=== PATIENT | female | born 1960 | race Caucasian/White ===

== ENCOUNTER 2016-10-18 09:18 | Day surgery (SDC) | payer OTHER ==
[2016-09-27 09:23] VITALS: BMI 57.0
--- NOTE | 2016-09-27 09:51 | PAT Medication Instructions ---
Service Date Sep 27, 2016. Current Home Medication List Citalopram Hydrobromide (Celexa), 20 MG PO QAM Fluticasone Propionate (Nasal) (Flonase Allergy Relief), 2 SPRAY WHITNEY DAILY PRN for prn Lisinopril/Hctz (Prinzide 20-25MG), 1 TAB PO QAM Lovastatin (Mevacor), 10 MG PO HS Meloxicam (Mobic), 15 MG PO QAM Omeprazole (Prilosec), 20 MG PO DAILY PRN for Indigestion Medication Instructions For Your Scheduled Surgery - Hold the following medications the morning of surgery: Lisinopril/Hctz (Prinzide 20-25MG), 1 TAB PO QAM Meloxicam (Mobic), 15 MG PO QAM (otherwise okay to continue per surgeon) - Take the following medications the morning of surgery with a sip of water OTHERWISE NOTHING TO EAT OR DRINK AFTER MIDNIGHT: Omeprazole (Prilosec), 20 MG PO DAILY PRN for Indigestion Citalopram Hydrobromide (Celexa), 20 MG PO QAM Fluticasone Propionate (Nasal) (Flonase Allergy Relief), 2 SPRAY WHITNEY DAILY PRN for prn - Take the following medications as scheduled the night before surgery: Lovastatin (Mevacor), 10 MG PO HS If you have any questions please call us at [phone] or [phone] or [phone]
[2016-09-27 11:07] LABS: BASO % 0.5 %; BASO ABS # 0.04 K/uL (0-0.2); COMPLETE YES; EOS % 5.7 %; HEMATOCRIT 43.9 % (37-47); IG% 0.3 %; LYMPH % 42.1 %; LYMPH ABS # 3.17 K/uL (1.2-3.4); MEAN CELL VOLUME 90.5 fL (80-100); MEAN CORPUSCULAR HEMOGLOBIN 28.9 pg (25-34); MEAN CORPUSCULAR HGB CONC 31.9 g/dl (32-36); MEAN PLATELET VOLUME 10.5 fL (7.4-10.4); MONO % 5.4 %; PLATELET COUNT 267 K/uL (130-400); RED BLOOD COUNT 4.85 M/uL (4.2-5.4); WHITE BLOOD COUNT 7.53 K/uL (4.8-10.8)
[2016-09-27 11:17] LABS: BUN/CREATININE RATIO 13.8 (10-20); CALCIUM 8.8 mg/dl (8.5-10.1); CREATININE 0.77 mg/dl (0.60-1.20); POTASSIUM 3.9 mmol/L (3.5-5.1)
--- NOTE | 2016-10-17 17:06 | History and Physical ---
History & Physical Date & Time of Service: Oct 17, 2016 at 17:02 Chief Complaint: Right Knee Medial/Lateral Meniscal Tear, Djd Primary Care Physician: Kimi Salinas D.O. History of Present Illness Source: patient Past Medical/Surgical History Medical Problems: (1) CALCULUS OF KIDNEY Status: Chronic (2) DIAB LUCIE WO COMPL, TYPE II OR UNSPEC TYPE, NOT UNCNTRLD Status: Chronic (3) FAM HX-OTH KIDNEY DISEASES Status: Chronic (4) FAMILY HISTORY OF OTHER CARDIOVASCULAR DISEASES Status: Chronic (5) HYPERTENSION NOS Status: Chronic (6) OBESITY, NOS Status: Chronic (7) SUICIDAL IDEATION Status: Chronic (8) TOBACCO USE DISORDER Status: Chronic Social History Smoking Status: Current Every Day Smoker Marital Status: Housing status: lives with family Occupational Status: unemployed Immunizations History of Influenza Vaccine: N/A History of Tetanus Vaccine?: Yes History of Pneumococcal: Yes History of Hepatitis B Vaccine: No Multi-Drug Resistant Organisms History of MDRO: No Allergies Coded Allergies: Sulfa Drugs (Verified Allergy, Mild, N/V, 09/27/16) Replaces SULFAMETHOXAZ Diclofenac (Verified Allergy, Unknown, NAUSEA, 09/27/16) Penicillins (Verified Allergy, Unknown, HIVES, 09/27/16) Sulindac (Verified Allergy, Unknown, NAUSEA, 09/27/16) Oxycodone (Verified Adverse Reaction, Mild, ANXIOUS, 09/27/16) Home Medications Scheduled Citalopram Hydrobromide (Celexa), 20 MG PO QAM Lisinopril/Hctz (Prinzide 20-25MG), 1 TAB PO QAM Lovastatin (Mevacor), 10 MG PO HS Meloxicam (Mobic), 15 MG PO QAM Scheduled PRN Fluticasone Propionate (Nasal) (Flonase Allergy Relief), 2 SPRAY WHITNEY DAILY PRN for prn Omeprazole (Prilosec), 20 MG PO DAILY PRN for Indigestion Physical Exam General Appearance: WD/WN, no apparent distress Head: normocephalic, atraumatic Eyes: normal inspection, PERRL Neck: supple, no adenopathy Respiratory/Chest: chest non-tender, lungs clear Cardiovascular: regular rate, rhythm Abdomen/GI: normal bowel sounds, non tender medial and lateral joint line tenderness, + mcmurrays, pain with end ROM, no signif effusion. No calf pain, neg homans. Impression Assessment and Plan Medial and lateral meniscal tears, OA. Plan for Right knee scope, PLM, PMM, Chondroplasty.
[~2016-10-18] VITALS: Ht 157.5 cm; Wt 142.4 kg
[~2016-10-18 09:18] MED LIST: CITA20TA9 PO; FLUT0.15 NAE; LACTATED RINGER'S 1000ML 1,000 ML IV SCH; LISI20TA55 PO; LOVA10TA3 PO; MELO7.5T5 PO; PRLSR20 PO; VANCOMYCIN INJ 2,000 MG in SODIUM CHLORIDE 0.9% 500ML 500 ML IV SCH
[2016-10-18] MEDS ORDERED: FENTANYL CITRATE INJ 50 MCG/1 ML 2 ML VIAL ONE ×2 (10:16→11:48)
[2016-10-18] MEDS ORDERED: MIDAZOLAM HCL 1 MG/ML 2ML VIAL ONE (10:16)
[2016-10-18 10:17] VITALS: BP 105/68; PULSE 76; TEMP 36.9; O2SAT 95; Ht 157.5 cm; Wt 142.4 kg
--- NOTE | 2016-10-18 11:02 | History & Physical Bridge Note ---
H&P Re-Evaluation Bridge Note: I have examined the patient, reviewed the History & Physical and in the interval since the performance of the History & Physical I have noted the following changes of clinical significance: No changes noted
[2016-10-18] MEDS ORDERED: ATROPINE SULFATE 0.1 MG/ML 5ML SYR IV PRN (11:15)
[2016-10-18] MEDS ORDERED: LABETALOL HCL IV 5 MG/ML 20ML IV PRN (11:15)
[2016-10-18] MEDS ORDERED: MEPERIDINE HCL 25 MG/ML CARP IV PRN (11:15)
[2016-10-18] MEDS ORDERED: ONDANSETRON INJ 2 MG/ML 2 ML VIAL IV PRN (11:15)
[2016-10-18] MEDS ORDERED: EpHEDrine SULFATE INJ 50 MG/ML AMP IV PRN (11:15)
[2016-10-18] MEDS ORDERED: BUPIVACAINE/EPINEPHRINE 0.5% MPF 1:200,000 10 ML VIAL ONE (11:22)
[2016-10-18] MEDS ORDERED: BUPIVACAINE 0.25% 30 ML VIAL ONE (11:33)
[2016-10-18] MEDS ORDERED: PHENYLEPHRINE 100MCG/ML 5ML SYR ONE (11:48)
[2016-10-18] MEDS ORDERED: ROCURONIUM BROMIDE 10 MG/ML 5 ML VIAL ONE (11:48)
[2016-10-18] MEDS ORDERED: PROPOFOL IV EMULSION 10 MG/ML 20 ML VIAL IV ONE (11:48)
[2016-10-18] MEDS ORDERED: EpHEDrine SULFATE INJ 50 MG/ML AMP ONE ×2 (11:48→11:52)
[2016-10-18] MEDS ORDERED: SODIUM CHLORIDE 0.9% INJ 10 ML VIAL ONE (11:52)
[2016-10-18] MEDS ORDERED: ONDANSETRON INJ 2 MG/ML 2 ML VIAL ONE (11:53)
[2016-10-18] MEDS ORDERED: DEXAMETHASONE SOD INJ 4 MG/ML VIAL ONE (11:53)
[2016-10-18] MEDS ORDERED: GLYCOPYRROLATE INJ 0.2 MG/ML VIAL ONE (11:53)
[2016-10-18] MEDS ORDERED: NEOSTIGMINE METHYLSULFATE 5 MG/5 ML SYR ONE (11:53)
[2016-10-18] MEDS ORDERED: SODIUM CHLORIDE 0.9% 1000ML 1,000 ML IV SCH (12:41)
[2016-10-18] MEDS ORDERED: HYDR-5688 PO (12:44)
[2016-10-18] MEDS ORDERED: HYDROCODONE/ACETAMOPHEN 5/325MG TAB PO PRN ×2 (12:45)
--- NOTE | 2016-10-18 12:47 | Discharge Instructions ---
Discharge Instructions Date of Service Oct 18, 2016. Admission Reason for Admission: Right Knee Medial/Lateral Meniscal Tear, Djd Discharge Discharge Diagnosis / Problem: Right knee scope, partial medial and lateral menisectomies. Discharge Goals Goal(s): Improve function Activity Recommendations Activity Limitations: as noted below . Instructions / Follow-Up Instructions / Follow-Up See printed home instruction sheet in chart. Begin PT 2-3 days post op at your place of choice, take printed PT Rx to first visit. Follow up w Dr. Lara's office 10-12 days post op as scheduled, call to confirm appt. Current Hospital Diet Patient's current hospital diet: Discharge Diet Recommended Diet: Regular Diet Procedures Procedures Performed: Right knee arthroscopy, medial and lateral menisectomy, chondroplasty Pending Studies Studies pending at discharge: no Medical Emergencies . Who to Call and When: Medical Emergencies: If at any time you feel your situation is an emergency, please call 911 immediately. . Non-Emergent Contact Non-Emergency issues call your: Primary Care Provider . "Provider Documentation" section prepared by Angel Swift. . VTE Core Measure Inpt VTE Proph given/why not?: SCD's [place] Drug Monitoring Program Search Results: patient reviewed within database, no issues identified
[2016-10-18] MEDS ORDERED: ALBUTEROL HFA INHALER 8.5 GM INH ONE (13:05)
[2016-10-18] MEDS ORDERED: ASPEC81 PO (13:22)
--- NOTE | 2016-10-18 13:22 | [facility] Operative Report ---
Operative Report Operative Date Oct 18, 2016. Pre-Operative Diagnosis Right knee medial and lateral meniscal tear, Degenerative joint disease Post-Operative Diagnosis same Procedure(s) Performed Right knee arthroscopy with partial medial meniscectomy partial lateral meniscectomy 3 compartment chondroplasty and increased difficulty due to morbid obesity BMI 57.4. Surgeon Dr Lara Electrician Sound Surgeon(s) none Estimated Blood Loss 0 ml Findings Tricompartmental DJD grade 3 with complex medial and lateral meniscus tears. Morbid obesity. Specimens none per surgeon Drains none Anesthesia Gen. Complication(s) None Disposition Recovery Room / PACU Indications Failed conservative management not [id number] on x-rays and MRI positive meniscus tears medial and lateral Description of Procedure The patient was taken to the operating room and anesthetized under a general anesthetic. The patient was placed supine on the operating room table. A pneumatic tourniquet was placed about the right upper thigh. The knee exam demonstrated a very obese thigh of these upper leg and obesity with knee stiffness with 0-115 range of motion with no instability and a moderately large effusion. The right leg was placed into an manager instrumentation leg holding device. The right lower extremity was prepped and draped in sterile fashion. Leg was elevated and exsanguinated with an Esmarch bandage and a pneumatic tourniquet was raised to 350 mmHg. The arthroscopy was performed via inferior medial and inferior lateral arthroscopy portals. A superior medial Additional portal was utilized. The following findings were noted patient had some lateral tracking of the patella she had grade 3 chondromalacia majority of patella lateral and medial facets and close to grade 4 changes in the central region. On the lateral femoral condyle and upper trochlear groove showed cystic and delamination with grade 3 wear and loose flaps around the periphery of the large lesion involving these upper trochlea over onto the lateral femoral condyle. In the medial compartment she had grade 3 wear mainly on the medial femoral condyle but some grade 2 wear on the tibial plateau and a complex medial meniscus tear. There was a horizontal cleavage undersurface flap that extended out to the periphery and into the posterior horn and some inner margin degenerative tearing of the posterior horn. There were notch osteophytes mainly on the tibial spines intact cruciate ligaments some grade 3 wear the anterior extension surface of the lateral femoral condyle and 1 area on the tibial spine that the bone was showing through with grade 3 chondromalacia lesion about 6 mm in diameter. Lateral meniscus had a horizontal cleavage tear mid undersurface meniscus.. Attention was first taken to the medial compartment. A partial medial meniscectomy was performed using a 4.5 mm resector blade and a 3.5 mm incisor curved blade suction shaver devices with basket punches to remove the unstable flaps and contour the meniscus to U-shaped resection. The undersurface flaps were debrided out to the periphery. The meniscus was probed and noted be stable. All grade 3 areas had a chondroplasty of the medial compartment smoothing down the frayed areas and removing all to laminating flaps. In the lateral compartment the undersurface of the lateral meniscus was resected out to the periphery utilizing a straight basket punch and the curved incisor blade. Did a chondroplasty to the femoral condyle and tibial plateau grade 3 lesions. The patellofemoral joint and did a chondroplasty of the trochlear groove and patella surfaces removing all loose to laminating flaps and smoothing out all grade 3 areas. All debris was irrigated out of the knee to lift knee was free of all debris.. The portal sites were closed with nylon sutures. The knee was injected with Marcaine 30 mL. Sterile dressings were applied including an James wrap from the foot to thigh. The patient normal capillary refill when the tourniquet was let down. The patient tolerated the procedure well. There was increased difficulty throughout the procedure due to her morbid obesity BMI 57.4. I attest to the content of the Intraoperative Record and any orders documented therein. Any exceptions are noted below.
[2016-10-18] MEDS: FENTANYL CITRATE INJ 50 MCG/1 ML 2 ML VIAL IV PRN ×4 (13:23→13:41)
[2016-10-18] MEDS: HYDROmorphone INJ 1 MG/ML SYR IV PRN ×7 (13:47→14:25)
[2016-10-18] MEDS ORDERED: NURSING VERBAL MED ORDER ONE ×2 (14:05→14:30)
[2016-10-18] MEDS ORDERED: KETOROLAC TROMETHAMINE 30 MG/ML VIAL ONE (14:20)
--- NOTE | 2016-10-18 14:44 | Anesthesiology Progress Note ---
Anesthesia Post Op Note Date & Time Oct 18, 2016 at 14:43 Vital Signs Pain Intensity: 5 Vital Signs Past 12 Hours Date Time Temp Pulse Resp B/P (MAP) Pulse Ox O2 Delivery O2 Flow Rate FiO2 10/18/16 14:38 37.0 10/18/16 14:30 77 12 92 10/18/16 14:30 84 12 10/18/16 14:27 158/53 10/18/16 14:25 108 13 93 10/18/16 14:25 103 13 10/18/16 14:22 146/77 10/18/16 14:20 90 13 93 10/18/16 14:20 94 13 10/18/16 14:16 115/91 10/18/16 14:15 106 19 93 10/18/16 14:15 105 19 10/18/16 14:11 136/59 10/18/16 14:10 82 12 92 10/18/16 14:10 86 12 10/18/16 14:06 124/58 10/18/16 14:05 102 19 10/18/16 14:05 101 19 92 10/18/16 14:02 141/60 10/18/16 14:00 98 12 92 10/18/16 14:00 96 12 10/18/16 13:57 156/64 10/18/16 13:55 97 16 10/18/16 13:55 101 16 92 10/18/16 13:54 89 21 10/18/16 13:54 87 21 93 10/18/16 13:51 115/77 10/18/16 13:49 100 12 93 10/18/16 13:49 94 12 10/18/16 13:48 99 18 10/18/16 13:48 97 18 93 10/18/16 13:46 157/67 10/18/16 13:43 96 21 10/18/16 13:43 96 21 92 10/18/16 13:41 127/67 10/18/16 13:38 92 17 10/18/16 13:38 90 17 94 10/18/16 13:37 109 22 10/18/16 13:37 109 22 94 10/18/16 13:36 163/72 10/18/16 13:32 104 12 10/18/16 13:32 102 12 99 10/18/16 13:31 153/73 10/18/16 13:27 103 18 10/18/16 13:27 104 18 92 10/18/16 13:26 165/70 10/18/16 13:23 111 20 10/18/16 13:23 111 20 96 10/18/16 13:21 155/89 10/18/16 13:18 107 19 93 10/18/16 13:18 107 19 10/18/16 13:16 141/78 10/18/16 13:13 101 19 10/18/16 13:13 101 19 93 10/18/16 13:11 145/79 10/18/16 13:09 168/78 10/18/16 13:08 111 10/18/16 13:08 111 94 10/18/16 13:08 37.0 105 18 168/78 93 Mask 10 10/18/16 10:17 36.9 76 20 105/68 (80) 95 Room Air Notes Mental Status: alert / awake / arousable, participated in evaluation Pt Amnestic to Procedure: Yes Nausea / Vomiting: adequately controlled Pain: adequately controlled Airway Patency, RR, SpO2: stable & adequate BP & HR: stable & adequate Hydration State: stable & adequate Anesthetic Complications: no major complications apparent
[2016-10-18 14:55] VITALS: BP 145/65; PULSE 100; TEMP 36.7; O2SAT 93
[2016-10-18 15:25] VITALS: BP 144/78; PULSE 100; TEMP 36.7; O2SAT 94
[2016-10-18 15:55] VITALS: BP 141/69; PULSE 88; TEMP 36.1; O2SAT 92
== END 2016-10-18 16:05 | disposition home or self-care (01) ==
LOC: C.ACU 09:18
PROVIDERS: ATTEND Orthopaedic Surgery Sports Medicine
DX: S83.281A Other tear of lateral meniscus, current injury, right knee, initial encounter (principal); S83.241A Other tear of medial meniscus, current injury, right knee, initial encounter; M17.11 Unilateral primary osteoarthritis, right knee; E66.01 Morbid (severe) obesity due to excess calories; Z68.43 Body mass index [BMI] 50.0-59.9, adult; E11.9 Type 2 diabetes mellitus without complications; I10 Essential (primary) hypertension; F17.210 Nicotine dependence, cigarettes, uncomplicated; Z79.899 Other long term (current) drug therapy; X58.XXXA Exposure to other specified factors, initial encounter

== ENCOUNTER 2018-09-30 20:37 | Observation (INO) ==
[2018-09-30 21:29] LABS: Basophils # (auto) 0.03 K/uL (0-0.2); Basophils % (auto) 0.3 %; Eosinophils # (auto) 0.55 K/uL (0-0.5); Eosinophils % (auto) 5.1 %; Hematocrit (blood only) 45.8 % (37-47); Hemoglobin 15.4 g/dL (12.0-16.0); Immature Granulocytes # (auto) 0.02 K/uL (0.00-0.02); Immature Granulocytes % (auto) 0.2 %; Lymphocytes # (auto) 3.89 K/uL (1.2-3.4); Lymphocytes % (auto) 35.8 %; Mean Corpuscular Hgb Conc 33.6 g/dL (32-36); Mean Corpuscular Volume 90.5 fL (80-100); Mean Platelet Volume 10.9 fL (7.4-10.4); Monocytes # (auto) 0.65 K/uL (0.11-0.59); Neutrophils # (auto) 5.72 K/uL (1.4-6.5); Neutrophils % (auto) 52.6 %; Platelet Count 283 K/uL (130-400); RDW Coefficient of Variation 14.3 % (11.5-14.5); RDW Standard Deviation 47.8 fL (36.4-46.3); Red Blood Count 5.06 M/uL (4.2-5.4); White Blood Count 10.86 K/uL (4.8-10.8)
[2018-09-30 21:40] LABS: Partial Thromboplastin Ratio 1.1; Partial Thromboplastin Time 28.5 Seconds (21.0-31.0); Prothrombin Time 10.3 Seconds (9.0-12.0)
[2018-09-30 21:45] LABS: Alanine Aminotransferase 25 U/L (12-78); Albumin Level 3.3 gm/dl (3.4-5.0); Aspartate Aminotransferase 15 U/L (15-37); BUN Creatinine Ratio 8.5 (10-20); Blood Urea Nitrogen 7 mg/dl (7-18); Calcium 9.3 mg/dl (8.5-10.1); Carbon Dioxide 29 mmol/L (21-32); Chloride 105 mmol/L (98-107); Creatinine Clr Calc Pharmacy 98.1 ml/min; Est GFR (African American) 92.1; Est GFR (Non-African American) 79.4; Glucose 113 mg/dl (70-99); Potassium 3.3 mmol/L (3.5-5.1); Sodium 140 mmol/L (136-145)
[2018-09-30 21:50] LABS: Albumin Globulin Ratio 0.8 (0.9-2); Alkaline Phosphatase 120 U/L (45-117); Bilirubin,Total 0.2 mg/dl (0.2-1); Globulin 4.3 gm/dl (2.5-4.0); Total Protein 7.6 gm/dl (6.4-8.2); Troponin I < 0.015 ng/ml (0-0.045)
[2018-09-30] MEDS ORDERED: NITROGLYCERIN 2% OINTMENT 30GM TUBE EXT ONE (21:58)
[2018-09-30] MEDS ORDERED: ASPIRIN 325 MG ECTAB PO STA (22:12)
--- NOTE | 2018-09-30 22:12 | Emergency Department Note ---
Entered by Anusha Blue acting as a scribe for Apolonia Persaud DO History of Present Illness General Chief complaint: Chest Pain Stated complaint: CHEST PAIN, L ARM PAIN Time Seen by Provider: 09/30/18 21:31 Source: patient Limitations: no limitations History of Present Illness Onset (ago): hour(s) 2 Location: chest Radiation: other (left upper extremity, left jaw) Pain Consistency: + intermittent Maximum Pain Intensity: 5 Quality: + other ("discomfort") Associated symptoms: + other (lower extremity swelling); no cough Treatments prior to arrival: none The patient is a 58 year female who presents to the ED complaining of intermittent chest pain that began at 1930 this evening. The rates the pain as a 5/10 in severity. She reports that the pain began in her left shoulder and chest, radiated to her left upper extremity and left jaw, and moved to her central chest. The patient describes the chest pain as chest "discomfort." She complains of lightheadedness and nausea. She denies any lower extremity swelling, cough, and recent medication change. 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 She notes that she smokes cigarettes daily. The patient denies any recent change in activity levels. Home Medications Home Medications Medication Instructions Recorded Confirmed Type Flonase Sensimist 2 spray INTRANASAL DAILY PRN 09/30/18 09/30/18 History citalopram [Celexa] 20 mg PO DAILY 09/30/18 09/30/18 History lisinopril-hydrochlorothiazide 1 tab PO DAILY 09/30/18 09/30/18 History [Zestoretic] ranitidine HCl 150 mg PO DAILY PRN 09/30/18 09/30/18 History aspirin [Ecotrin Low Strength] 81 mg PO QAM 30 Days #30 tab 10/01/18 Rx atorvastatin 10 mg PO QAM 30 Days #30 tab 10/01/18 Rx Allergies Allergy/AdvReac Type Severity Reaction Status Date / Time Sulfa (Sulfonamide Allergy Mild N/V Verified 09/30/18 22:27 Antibiotics) capsaicin Allergy Unknown NAUSEA Verified 09/30/18 22:27 diclofenac Allergy Unknown NAUSEA Verified 09/30/18 22:27 Diclopak Allergy Unknown NAUSEA Verified 10/18/16 10:27 Penicillins Allergy Unknown HIVES Verified 09/30/18 22:27 sulindac Allergy Unknown NAUSEA Verified 09/30/18 22:27 oxycodone AdvReac Mild ANXIOUS Verified 09/30/18 22:27 Past Med/Surg History Medical History H/O: hysterectomy Hypertension Family History Father Myocardial infarction Sister Myocardial infarction Social History Preferred Language: Danish Communication Ability: Effective Beliefs That Will Affect Care: None Current Living Situation: Spouse and Family Feels Safe at Home: Yes Safety Concerns: Feels Safe At This Time Smoking Status: Current every day smoker Tobacco Type: cigarettes Tobacco David sation Education Requested by Patient: No Hx Alcohol Use: No Hx Substance Use: No Review of Systems See HPI for pertinent positives & negatives. and A total of 10 systems reviewed and were otherwise negative Physical Exam Vital Signs Vital Signs - 24 hr 09/30/18 20:43 09/30/18 21:21 09/30/18 21:22 Temperature 98.2 F Temperature Source Oral Sepsis Recent Fever Within 48 Hours No Sepsis New/Unexplained Change in Mental Status No Sepsis Action Taken by Nursing No Action Required Pulse Rate 106 H Pulse Rate [Left Apical] 92 H Pulse Rhythm [Left Apical] Pulse Strength [Left Apical] Respiratory Rate 20 20 Respiratory Effort / Characteristics Non-Labored Respiratory Depth Normal Blood Pressure 186/84 H Blood Pressure [Left Arm] 166/93 H Blood Pressure Mean 118 Blood Pressure Mean [Left Arm] 117 Pulse Oximetry 94 97 96 Oxygen Delivery Method Room Air Room Air 09/30/18 22:38 09/30/18 22:52 09/30/18 22:59 Temperature Temperature Source Sepsis Recent Fever Within 48 Hours Sepsis New/Unexplained Change in Mental Status Sepsis Action Taken by Nursing Pulse Rate 98 H Pulse Rate [Left Apical] 102 H 82 Pulse Rhythm [Left Apical] Regular Pulse Strength [Left Apical] Normal Respiratory Rate 20 13 Respiratory Effort / Characteristics Non-Labored Spontaneous Respiratory Depth Normal Blood Pressure 169/98 H Blood Pressure [Left Arm] 169/98 H 165/85 H Blood Pressure Mean Blood Pressure Mean [Left Arm] 121 111 Pulse Oximetry 94 92 Oxygen Delivery Method Room Air Room Air GENERAL: alert, well appearing, well nourished, no distress, non-toxic, morbidly obese EYE EXAM: normal conjunctiva, PERRL and EOM's grossly intact OROPHARYNX: no exudate, no erythema, lips, buccal mucosa, and tongue normal and mucous membranes are moist NECK: supple, no nuchal rigidity, no adenopathy, non-tender LUNGS: Clear to auscultation. Normal chest wall mechanics. Diminished breath sounds. No wheezes, rhonchi, or rales. HEART: no murmurs, S1 normal and S2 normal ABDOMEN: abdomen soft, non-tender, normo-active bowel sounds, no masses, no rebound or guarding. BACK: Back is symmetrical on inspection and there is no deformity, no midline tenderness, no CVA tenderness. SKIN: no rashes and no bruising UPPER EXTREMITIES: upper extremities are grossly normal. Normal pulses bilaterally. LOWER EXTREMITIES: No pitting edema. Full range of motion, normal pulses bilaterally. NEURO EXAM: Normal sensorium, cranial nerves II-XII grossly intact, normal speech, no gross weakness of arms, no gross weakness of legs. Course 2154: The patient was evaluated in room A11B. A complete history and physical exam was performed. 2211: I spoke with Dr. Kirkland, [facility], about the patients case. He will further evaluate the patient. 2239: I reevaluated the patient. Her blood pressure was still elevated. She complains of still having pain. The patient refused more pain medication. Patient appears uncomfortable but is declining additional treatment for her pain . Consultations Consultation #1: I spoke with Dr. Kirkland, [facility], about the patients case. He will further evaluate the patient. Time: 22:12 Administered Medications Discontinued Medications Aspirin (Ecotrin) 325 mg PO NOW [facility] Stop: 09/30/18 22:13 Last Admin: 09/30/18 22:36 Dose: 325 mg Documented by: [id number] Aspirin (Ecotrin Ectab) 81 mg PO [facility] Stop: 10/31/18 08:59 Last Admin: 10/01/18 08:33 Dose: 81 mg Documented by: [id number] Atorvastatin Calcium (Lipitor) 10 mg PO [facility] Stop: 10/31/18 14:44 Last Admin: 10/01/18 15:43 Dose: 10 mg Documented by: [id number] Atropine Sulfate (Atropine Sulfate) Confirm Administered Dose 1 mg IV .[facility] Stop: 10/01/18 14:12 Last Admin: 10/01/18 14:46 Dose: Not Given Documented by: [id number] Citalopram Hydrobromide (Celexa) 20 mg PO DAILY [facility] Stop: 10/31/18 08:59 Last Admin: 10/01/18 08:33 Dose: 20 mg Documented by: [id number] Dobutamine HCl (Dobutrex) Confirm Administered Dose 250 mg IV .[facility] Stop: 10/01/18 14:12 Last Admin: 10/01/18 14:47 Dose: 1 dose Documented by: [id number] Famotidine (Pepcid 20mg Iv Push) 20 mg IV ONE STA Stop: 09/30/18 22:41 Last Admin: 09/30/18 22:53 Dose: 20 mg Documented by: [id number] Lisinopril/HCTZ (Prinzide 20/25mg) 1 tab PO DAILY [facility] Stop: 10/31/18 08:59 Last Admin: 10/01/18 08:33 Dose: 1 tab Documented by: [id number] Ioversol (Optiray 320 125ml) 125 ml IV ONCE PRN PRN Reason: Interaction Checking Stop: 10/05/18 00:54 Last Admin: 10/01/18 00:56 Dose: 115 ml Documented by: [id number] Metoprolol Tartrate (Lopressor) 5 mg IV NOW STA Stop: 09/30/18 22:41 Last Admin: 09/30/18 22:52 Dose: 5 mg Documented by: [id number] Metoprolol Tartrate (Lopressor) Confirm Administered Dose 5 mg IV .[facility] ONE Stop: 10/01/18 14:12 Last Admin: 10/01/18 14:49 Dose: 5 mg Documented by: [id number] Nitroglycerin (Nitro-Bid 2%) 1 inch EXT NOW ONE Stop: 09/30/18 21:59 Last Admin: 09/30/18 22:05 Dose: 1 inch Documented by: [id number] Nitroglycerin (Nitro-Bid 2%) 1 inch EXT Q6H [facility] Stop: 10/31/18 03:59 Last Admin: 10/01/18 10:04 Dose: 1 inch Documented by: [id number] Admin: 10/01/18 04:09 Dose: 1 inch Documented by: [id number] Medical Decision Making Differential Diagnosis Etiologies such as shingles, musculoskeletal pain, pericarditis, myocarditis, cardiac ischemia, pericardial tamponade, pneumonia, pneumothorax, pleural effusion, hemothorax, pleurisy, aortic pathology, pulmonary embolism, intra- abdominal process, as well as others were considered. Medical Records Attestation: I reviewed the patient's medical records. Home Medications Current Medication List: was personally reviewed by me Laboratory Data Attestation: I reviewed the patient's lab results. Result diagrams: 10/01/18 05:58 10/01/18 05:58 Lab Results 09/30/18 09/30/18 09/30/18 Range/Units 21:20 21:20 21:20 WBC 10.86 H (4.8-10.8) K/uL RBC 5.06 (4.2-5.4) M/uL Hgb 15.4 (12.0-16.0) g/dL Hct 45.8 (37-47) % MCV 90.5 (80-100) fL MCH 30.4 (25-34) pg MCHC 33.6 (32-36) g/dL RDW Std Deviation 47.8 H (36.4-46.3) fL RDW Coeff of Jovan 14.3 (11.5-14.5) % Plt Count 283 (130-400) K/uL MPV 10.9 H (7.4-10.4) fL Immature Gran % (Auto) 0.2 % Neut % (Auto) 52.6 % Lymph % (Auto) 35.8 % [place] % (Auto) 6.0 % Eos % (Auto) 5.1 % Baso % (Auto) 0.3 % Immature Gran # (Auto) 0.02 (0.00-0.02) K/uL Neut # (Auto) 5.72 (1.4-6.5) K/uL Lymph # (Auto) 3.89 H (1.2-3.4) K/uL [place] # (Auto) 0.65 H (0.11-0.59) K/uL Eos # (Auto) 0.55 H (0-0.5) K/uL Baso # (Auto) 0.03 (0-0.2) K/uL PT 10.3 (9.0-12.0) Seconds INR 1.0 (0.9-1.1) APTT 28.5 (21.0-31.0) Seconds PTT Ratio 1.1 D-Dimer (0-500) ug/L FEU Sodium 140 (136-145) mmol/L Potassium 3.3 L (3.5-5.1) mmol/L Chloride 105 (98-107) mmol/L Carbon Dioxide 29 (21-32) mmol/L Anion Gap 6.0 (3-11) BUN 7 (7-18) mg/dl Creatinine 0.82 (0.6-1.2) mg/dl Est Cr Clr Drug Dosing 98.1 ml/min Est GFR ( Amer) 92.1 Est GFR (Non-Af Amer) 79.4 BUN/Creatinine Ratio 8.5 L (10-20) Glucose 113 H (70-99) mg/dl Calcium 9.3 (8.5-10.1) mg/dl Total Bilirubin 0.2 (0.2-1) mg/dl AST 15 (15-37) U/L ALT 25 (12-78) U/L Alkaline Phosphatase 120 H (45-117) U/L Troponin I < 0.015 (0-0.045) ng/ml NT-Pro-B Natriuret Pep (0-900) pg/ml Total Protein 7.6 (6.4-8.2) gm/dl Albumin 3.3 L (3.4-5.0) gm/dl Globulin 4.3 H (2.5-4.0) gm/dl Albumin/Globulin Ratio 0.8 L (0.9-2) Hepatitis C Ab Screen (Neg) 09/30/18 09/30/18 09/30/18 Range/Units 21:20 21:20 21:20 WBC (4.8-10.8) K/uL RBC (4.2-5.4) M/uL Hgb (12.0-16.0) g/dL Hct (37-47) % MCV (80-100) fL MCH (25-34) pg MCHC (32-36) g/dL RDW Std Deviation (36.4-46.3) fL RDW Coeff of Jovan (11.5-14.5) % Plt Count (130-400) K/uL MPV (7.4-10.4) fL Immature Gran % (Auto) % Neut % (Auto) % Lymph % (Auto) % [place] % (Auto) % Eos % (Auto) % Baso % (Auto) % Immature Gran # (Auto) (0.00-0.02) K/uL Neut # (Auto) (1.4-6.5) K/uL Lymph # (Auto) (1.2-3.4) K/uL [place] # (Auto) (0.11-0.59) K/uL Eos # (Auto) (0-0.5) K/uL Baso # (Auto) (0-0.2) K/uL PT (9.0-12.0) Seconds INR (0.9-1.1) APTT (21.0-31.0) Seconds PTT Ratio D-Dimer 740 H* (0-500) ug/L FEU Sodium (136-145) mmol/L Potassium (3.5-5.1) mmol/L Chloride (98-107) mmol/L Carbon Dioxide (21-32) mmol/L Anion Gap (3-11) BUN (7-18) mg/dl Creatinine (0.6-1.2) mg/dl Est Cr Clr Drug Dosing ml/min Est GFR ( Amer) Est GFR (Non-Af Amer) BUN/Creatinine Ratio (10-20) Glucose (70-99) mg/dl Calcium (8.5-10.1) mg/dl Total Bilirubin (0.2-1) mg/dl AST (15-37) U/L ALT (12-78) U/L Alkaline Phosphatase (45-117) U/L Troponin I (0-0.045) ng/ml NT-Pro-B Natriuret Pep 76 (0-900) pg/ml Total Protein (6.4-8.2) gm/dl Albumin (3.4-5.0) gm/dl Globulin (2.5-4.0) gm/dl Albumin/Globulin Ratio (0.9-2) Hepatitis C Ab Screen Neg (Neg) Imaging Data Radiologist's Impression: Radiology results as stated below per my review and the radiologist's interpretation: XR chest 1V portable CLINICAL HISTORY: chest pain pain COMPARISON STUDY: 12/04/2012 FINDINGS: Mild cardiomegaly. Moderate prominence the pulmonary vasculature. Diaphragms are smooth. Costophrenic angles sharp. IMPRESSION: Pulmonary vascular congestion. The above report was generated using voice recognition software. It may contain grammatical, syntax or spelling errors. Electronically signed by: Angel Perez M.D. 09/30/2018 10:24 PM ECG Data Attestation: I personally reviewed and interpreted this ECG as follows: Indication: chest pain Rate (beats per minute): 115 Rhythm: sinus tachycardia Findings: + other (normal axis, normal interval); no acute ischemic change and no ectopy Blood Pressure Blood Pressure Findings: Elevated blood pressure Blood Pressure Disposition: further management by hospitalist MDM Narrative HEART score 4 Patient with concerning story and multiple risk factors for ACS. Patient with elevated heart score. No acute EKG changes and no elevated troponin here. No evidence of wide mediastinum on chest x-ray or other clinical description to suggest acute dissection and prompt emergent CT angiography. I do not suspect P E. Low risk Wells score. Patient was started on nitro to help with chest pain as well as help improve elevated blood pressure noted. Patient refused any additional IV pain medications. Patient was given aspirin in the emergency room. Discussed with patient additional medications for possible evolving ACS and she declined. After extensive bedside conversation, she was in agreement with plan for additional evaluation by the hospitalist for possible cardiac testing and evaluation. No evidence of CHF. Symptoms not highly suggestive of COPD exacerbation given his chronic tobacco abuse. I do not suspect perforation or GI bleed. Impression & Plan Chest pain, Hypertension, Obesity, Tobacco use Discharge Plan Visit Data *Final* Discharge Date/Time: 09/30/18 23:29 Chief Complaint: Chest Pain Stated Complaint: CHEST PAIN, L ARM PAIN ED Provider: Apolonia Persaud Discharge Problem: Chest pain, Hypertension, Obesity, Tobacco use Patient Disposition: Admitted As Inpatient Discharge Instructions Interventions: ED Discharge Assessment Last Done: 09/30/18 23:39 Discharge Problem: Chest pain Qualifiers: Chest pain type: unspecified Qualified Code(s): R07.9 - Chest pain, unspecified Hypertension Qualifiers: Hypertension type: unspecified Qualified Code(s): I10 - Essential (primary) hypertension Obesity Qualifiers: Obesity type: unspecified obesity type Obesity classification: adult class 3 (BMI >= 40) Serious obesity comorbidity presence: unspecified whether serious comorbidity present Body mass index: BMI 50.0-59.9 Qualified Code(s): E66.01 - Morbid (severe) obesity due to excess calories The scribe's documentation has been prepared under my direction and personally reviewed by me in its entirety. I confirm that the note above accurately r eflects all work, treatment, procedures, and medical decision making performed by me.
--- NOTE | 2018-09-30 22:26 | XRay Report ---
XR chest 1V portable CLINICAL HISTORY: chest pain pain COMPARISON STUDY: 12/04/2012 FINDINGS: Mild cardiomegaly. Moderate prominence the pulmonary vasculature. Diaphragms are smooth. Co stophrenic angles sharp. IMPRESSION: Pulmonary vascular congestion. The above report was generated using voice recognition software. It may contain grammatical, syntax or spelling errors. Electronically signed by: Angel Perez M.D. 09/30/2018 10:24 PM
[2018-09-30] MEDS ORDERED: METOPROLOL TARTRATE 1 MG/ML VIAL IV STA (22:40)
[2018-09-30] MEDS ORDERED: FAMOTIDINE 20MG/5ML IV PUSH IV STA (22:40)
[2018-09-30 23:58] LABS: D Dimer 740 ug/L FEU (0-500)
[2018-10-01] MEDS ORDERED: FLUTICASONE PROPIONATE NA SPR 16 GM BTL PRN (00:04)
[2018-10-01] MEDS ORDERED: ONDANSETRON INJ 2 MG/ML 2 ML VIAL IV PRN (00:04)
[2018-10-01] MEDS ORDERED: ACETAMINOPHEN 325 MG TAB PO PRN (00:04)
[2018-10-01] MEDS ORDERED: NITROGLYCERIN SL 0.4 MG/TAB TAB SL PRN (00:04)
[2018-10-01] MEDS ORDERED: MoRPHine SULFATE 2 MG/ML CARP IV PRN (00:04)
[2018-10-01] MEDS ORDERED: OPTIRAY 320 125ml IV PRN (00:55)
--- NOTE | 2018-10-01 01:07 | History and Physical Report ---
DATE OF ADMISSION: 09/30/2018 CHIEF COMPLAINT: Chest pain. HISTORY OF PRESENT ILLNESS: This is a 58-year-old female with past medical history significant for hyperlipidemia, hypertension, obesity, depression, ongoing tobacco abuse, presents with chest pain. The patient yesterday evening around 8:00 p.m., she was watching TV when she noticed chest pain in the middle of the chest radiating to her shoulder, arm and left side of the face, moderate to severe in nature and she was brought into the ER. Initial workup is negative. The patient received aspirin, famotidine and nitroglycerin paste with the pain is currently 3/10 in severity. During the episode, she felt nauseous, dizzy and short of breath. Currently, still has some discomfort but hemodynamically stable. She smokes cigarettes daily about half of a pack. Denies any headache, no blurred vision, no earache, no runny nose, no sore throat, no difficulty swallowing. Appetite is okay. Sleep is okay. She has knee problem, cannot climb steps but otherwise she ambulates okay. Normal bowel and bladder movements. No abdominal pain. No swelling of the legs. No rash. Never had this chest pain before.As per she snores in the night. ALLERGIES: TO DICLOFENAC, OXYCODONE, PENICILLIN, PERCOCET, SULFA ANTIBIOTICS AND SULINDAC. PAST MEDICAL HISTORY: As mentioned above. PAST SURGICAL HISTORY: Colonoscopy with biopsy, lithotripsy, laparoscopic surgical lysis of adhesions, ligation of oviduct, partial hysterectomy, repair of the ruptured rotator cuff, left side. MEDICATIONS: The patient is on citalopram 20 mg p.o. daily, lisinopril/hydrochlorothiazide 20/25 mg p.o. daily, Flonase 2 sprays in each nostril daily. FAMILY HISTORY: Significant for father of OR in his 50s. Mother had stroke. Aunt has thyroid disorder. SOCIAL HISTORY: , lives with her , smokes half pack a day for last 15 years. No alcohol, no drug use. REVIEW OF SYMPTOMS: As per HPI. Rest of review of symptom is negative. PHYSICAL EXAMINATION: GENERAL: The patient is morbidly obese, not in acute distress. VITAL SIGNS: Temperature 36.8, pulse 82, respiratory rate 13, blood pressure 165/85, oxygen 92% on room air. HEENT: No pallor, no icterus. Pupils equal, round, reactive to light. NECK: No JVD, no neck masses, no carotid bruits. CARDIOVASCULAR: S1, S2 heard, regular rate and rhythm, no murmur, no gallop. RESPIRATORY SYSTEM: Normal AP diameter. No accessory muscle use. No wheezing, no crackles. ABDOMEN: Soft, bowel sounds present. Nontender. No distention. CENTRAL NERVOUS SYSTEM: Cranial nerves II-XII grossly intact, nonfocal. EXTREMITIES: No edema, no erythema. LABS: WBC 10, hemoglobin 15.4, hematocrit 45.8, platelets 283. PT 10.3, INR 1, APTT 25.5. Sodium 140, potassium 3.3, chloride 105, bicarbonate 29, BUN 7, creatinine 0.8, serum glucose 113, calcium 9.3, total bilirubin 0.2, AST 15, ALT 25, alkaline phosphatase 120. Troponin I less than 0.015. BNP 76. Chest x-ray: Pulmonary vascular congestion, but it is portable x-ray. The patient is morbidly obese. EKG: Sinus tachycardia, rate of 115. No acute ST changes seen. ASSESSMENT AND PLAN: This is a 58-year-old female who presents with chest pain. 1. Chest pain, rule out acute coronary syndrome, risk factors are of age, obesity, tobacco abuse, hypertension. We will check fasting lipid profile, initial workup is negative, serial cardiac enzymes, echocardiogram, n.p.o. from midnight. Consult Cardiology, for possible stress test if the troponins are negative.Elevated di dimer. Will follow CT chest PE study. 2. Hypertension. Continue home medication of lisinopril. Continue nitropaste as BP is high.We will monitor the blood pressure. 3. Depression. Continue Celexa. 4. Morbid obesity: Needs counseling, may need sleep study as outpatient. 5. Tobacco abuse: Needs counseling. 6. Deep venous thrombosis prophylaxis. SCDs and TEDs. 5. Disposition: Observation in tele floor. Expect to discharge home and follow with family doctor. Level 1 full code. MTDD
[2018-10-01] MEDS: NITROGLYCERIN 2% OINTMENT 30GM TUBE EXT SCH ×2 (04:09→10:04)
[2018-10-01 06:21] LABS: Basophils # (auto) 0.03 K/uL (0-0.2); Basophils % (auto) 0.3 %; Eosinophils # (auto) 0.53 K/uL (0-0.5); Eosinophils % (auto) 5.4 %; Hematocrit (blood only) 42.2 % (37-47); Hemoglobin 13.7 g/dL (12.0-16.0); Immature Granulocytes # (auto) 0.02 K/uL (0.00-0.02); Immature Granulocytes % (auto) 0.2 %; Lymphocytes # (auto) 4.07 K/uL (1.2-3.4); Lymphocytes % (auto) 41.2 %; Mean Corpuscular Hgb Conc 32.5 g/dL (32-36); Mean Platelet Volume 10.9 fL (7.4-10.4); Monocytes # (auto) 0.62 K/uL (0.11-0.59); Monocytes % (auto) 6.3 %; Neutrophils # (auto) 4.62 K/uL (1.4-6.5); Neutrophils % (auto) 46.6 %; Platelet Count 269 K/uL (130-400); RDW Coefficient of Variation 14.3 % (11.5-14.5); RDW Standard Deviation 46.8 fL (36.4-46.3); Red Blood Count 4.69 M/uL (4.2-5.4); White Blood Count 9.89 K/uL (4.8-10.8)
[2018-10-01 07:03] LABS: BUN Creatinine Ratio 9.1 (10-20); Blood Urea Nitrogen 7 mg/dl (7-18); Calcium 8.6 mg/dl (8.5-10.1); Carbon Dioxide 29 mmol/L (21-32); Chloride 106 mmol/L (98-107); Creatinine Clr Calc Pharmacy 105.1 ml/min; Est GFR (African American) 93.4; Est GFR (Non-African American) 80.6; Glucose 85 mg/dl (70-99); Magnesium 2.5 mg/dl (1.8-2.4); Potassium 3.9 mmol/L (3.5-5.1); Sodium 140 mmol/L (136-145)
[2018-10-01 07:05] LABS: Chol HDL Ratio 4; Cholesterol 160 mg/dl (0-200); HDL Cholesterol 38 mg/dl; LDL Cholesterol Calculated 95 mg/dl; Triglycerides 137 mg/dl (0-150); Troponin I < 0.015 ng/ml (0-0.045); VLDL Cholesterol 27 mg/dl
--- NOTE | 2018-10-01 07:10 | CT Scan Report ---
CT angio chest PE protocol CLINICAL HISTORY: 58 years-old Female presenting with atypical chest pain and nausea, clinical concer n for pulmonary embolus. TECHNIQUE: Multidetector CT angiography of the chest was performed after administration of intravenou s contrast. 3-D volumetric and/or maximum intensity projection (MIP) images were subsequently reconst ructed for review. IV contrast: 115 mL of Optiray 320. One or more dose lowering techniques were used consistent with the principles of ALARA (as low as reasonably achievable), including automatic expos ure control, mA or kV adjustment to individual patient size, and/or use of iterative reconstruction. COMPARISON: Noncontrast CT chest from 09/19/2010. CT DOSE (mGy.cm): The estimated cumulative dose is 1128.86 mGy.cm. FINDINGS: Analytical Chemist topogram: Unremarkable. Pulmonary vasculature: The study is suboptimal for the assessment of the pulmonary vascular tree secondary to timing of the contrast bolus and respiratory motion artifact. No filling defect within the pulmonary arteries to rahman ggest embolus. Main pulmonary artery is not enlarged. No flattening of the interventricular septum. N o intracardiac filling defect. No reflux of contrast into the hepatic veins. Remaining chest: Soft tissues: Normal thyroid and thoracic inlet. No axillary, supraclavicular, mediastinal, or hilar lymphadenopathy. Trace atherosclerosis of the aorta and branch vessels of the aortic arch. Normal hea rt size. Coronary artery calcification. No pericardial or pleural effusion. Hepatic steatosis. Left r enal cyst suggested, which may be partially calcified. Lungs and airways: No pneumothorax. Central airways patent. Pulmonary arteries may be mildly enlarged relative to adjacent bronchi. Diffuse mosaic attenuation may suggest small airways disease. No inter lobular septal thickening. No focal infiltrate. Subpleural solid 4 mm nodule at the left apex is unch anged from prior (series 4 image 210). Solid polygonal 3 mm nodule at the right apex also unchanged f rom prior (series 4 image 226). No new nodule. Musculoskeletal: Degenerative changes of the spine. Flowing anterior osteophytosis likely also indica foreign diffuse idiopathic skeletal hyperostosis. [place] fixation in the left humeral head. IMPRESSION: 1. No evidence of pulmonary embolus. 2. Diffuse mosaic attenuation likely indicate small airways disease. No focal infiltrate to suggest pneumonia. 3. Left renal cysts, which may be complex. 4. Hepatic steatosis. Electronically signed by: Ok Yepez M.D. 10/01/2018 7:09 AM
[2018-10-01] MEDS ORDERED: CITALOPRAM 20 MG TAB PO SCH (09:00)
[2018-10-01] MEDS ORDERED: LISINOPRIL/HCTZ 20/25MG 1 TAB PO SCH (09:00)
[2018-10-01] MEDS ORDERED: ASPIRIN 81 MG ECTAB PO SCH (09:00)
[2018-10-01] MEDS ORDERED: ATROPINE SULFATE 0.1 MG/ML 10ML SYR IV ONE (14:11)
[2018-10-01] MEDS ORDERED: METOPROLOL TARTRATE 1 MG/ML VIAL IV ONE (14:11)
[2018-10-01] MEDS ORDERED: DOBUTamine HCL 12.5 MG/ML 20 ML VIAL IV ONE (14:11)
--- NOTE | 2018-10-01 14:27 | Cardiology Consultation ---
Date of Consultation October 01, 2018 Assessment & Plan (1) Atypical chest pain: (2) Hypertension: (3) Hypertension: (4) Obesity: (5) Tobacco use: Patient admitted with 3-hour episode of atypical chest discomfort. No evidence of acute coronary syndrome. Blood pressure intermittently elevated since admission. Low HDL noted on admission with family history of premature CAD. Recommend low-dose statin therapy with follow-up fasting lipid panel in 6 to 12 weeks. Proceed with dobutamine stress echocardiography for further evaluation of atypical chest discomfort. Further recommendations pending review of stress result. Thank you for allowing to participate in care of your patient. History of Present Illness Reason for Consultation: 58-year-old female presented to the emergency department with chest discomfort. Patient describes left-sided chest ache radiating to her left arm beginning last evening. This was followed by chest burning. Discomfort lasted more than 2 hours. She was treated with sublingual nitroglycerin topical nitrates which had little effect on her pain. Discomfort gradually resolved overnight. Currently pain-free. ECG without ST changes. Cardiac enzymes are negative. Resting 2D transthoracic echocardiogram without regional wall motion abnormality. Previously evaluated by the undersigned September 2010 due to atypical chest discomfort. Exercise stress echocardiography perfor med at that time negative for inducible ischemia. Patient voices concern regarding her father who suffered a myocardial infarction in his 40s. CT angiogram of the chest performed on admission negative for inducible ischemia. Currently the patient complains of n.p.o. status since this morning. Requesting discharge if possible. Addendum: Dobutamine stress echo negative for inducible ischemia. Attending Physician: Keeley Burr MD Allergies Allergy/AdvReac Type Severity Reaction Status Date / Time Sulfa (Sulfonamide Allergy Mild N/V Verified 09/30/18 22:27 Antibiotics) capsaicin Allergy Unknown NAUSEA Verified 09/30/18 22:27 diclofenac Allergy Unknown NAUSEA Verified 09/30/18 22:27 Diclopak Allergy Unknown NAUSEA Verified 10/18/16 10:27 Penicillins Allergy Unknown HIVES Verified 09/30/18 22:27 sulindac Allergy Unknown NAUSEA Verified 09/30/18 22:27 oxycodone AdvReac Mild ANXIOUS Verified 09/30/18 22:27 Home Medications Home Medications Medication Instructions Recorded Confirmed Type Flonase Sensimist 2 spray INTRANASAL DAILY PRN 09/30/18 09/30/18 History citalopram [Celexa] 20 mg PO DAILY 09/30/18 09/30/18 History lisinopril-hydrochlorothiazide 1 tab PO DAILY 09/30/18 09/30/18 History [Zestoretic] ranitidine HCl 150 mg PO DAILY PRN 09/30/18 09/30/18 History Patient History Medical History H/O: hysterectomy Hypertension Family History Father Myocardial infarction Sister Myocardial infarction Social History Preferred Language: Chinese Communication Ability: Effective Beliefs That Will Affect Care: None Current Living Situation: Spouse and Family Feels Safe at Home: Yes Safety Concerns: Feels Safe At This Time Smoking Status: Current every day smoker Tobacco Type: cigarettes Tobacco Cessation Education Requested by Patient: No Hx Alcohol Use: No Hx Substance Use: No Review of Systems Review of Systems: All systems reviewed & are unremarkable except as noted in HPI & below Physical Exam Physical Exam: General: NAD, AAO x3, well nourished. Morbid obesity. HEENT: Normocephalic. Atraumatic. Conjunctiva pink, no scleral icterus. Neck: No carotid bruits, the carotid upstrokes are brisk. No JVD. No HJR Heart: Regular normal S-1 and S-2 no S-3 or S-4 gallop. No murmurs or rub appreciated. PMI is not displaced. No RV heave. Lungs: Clear bilateral without rales , rhonchi, or wheeze. Abdomen: Normal bowel sounds. Soft. Nontender. No masses or organomegaly. No abdominal bruits. Extremities: No clubbing, cyanosis, or edema. Pulses: radial=2/4, Dorsalis pedis =2/4, posterior tibial=2/4. Neuro: Cranial nerves grossly intact. No focal motor deficit. Results & Data Vital Signs (Past 12 Hours) Vital Signs Temp Pulse Pulse Resp BP Pulse Ox 10/01/18 10:59 36.5 C 87 22 176/60 H 93 10/01/18 07:34 36.5 C 69 16 124/63 94 10/01/18 07:29 69 10/01/18 03:51 36.6 C 82 19 123/66 93 Laboratory Results Laboratory Results - last 24 hr 09/30/18 09/30/18 09/30/18 21:20 21:20 21:20 WBC 10.86 H RBC 5.06 Hgb 15.4 Hct 45.8 MCV 90.5 MCH 30.4 MCHC 33.6 RDW Std Deviation 47.8 H RDW Coeff of Jovan 14.3 Plt Count 283 MPV 10.9 H Immature Gran % (Auto) 0.2 Neut % (Auto) 52.6 Lymph % (Auto) 35.8 Stafford % (Auto) 6.0 Eos % (Auto) 5.1 Baso % (Auto) 0.3 Immature Gran # (Auto) 0.02 Neut # (Auto) 5.72 Lymph # (Auto) 3.89 H Stafford # (Auto) 0.65 H Eos # (Auto) 0.55 H Baso # (Auto) 0.03 PT 10.3 INR 1.0 APTT 28.5 PTT Ratio 1.1 D-Dimer Sodium 140 Potassium 3.3 L Chloride 105 Carbon Dioxide 29 Anion Gap 6.0 BUN 7 Creatinine 0.82 Est Cr Clr Drug Dosing 98.1 Est GFR ( Amer) 92.1 Est GFR (Non-Af Amer) 79.4 BUN/Creatinine Ratio 8.5 L Glucose 113 H Calcium 9.3 Magnesium Total Bilirubin 0.2 AST 15 ALT 25 Alkaline Phosphatase 120 H Troponin I < 0.015 NT-Pro-B Natriuret Pep Total Protein 7.6 Albumin 3.3 L Globulin 4.3 H Albumin/Globulin Ratio 0.8 L Triglycerides Cholesterol LDL Cholesterol, Calc VLDL Cholesterol, Calc HDL Cholesterol Cholesterol/HDL Ratio Hepatitis C Ab Screen 09/30/18 09/30/18 09/30/18 21:20 21:20 21:20 WBC RBC Hgb Hct MCV MCH MCHC RDW Std Deviation RDW Coeff of Jovan Plt Count MPV Immature Gran % (Auto) Neut % (Auto) Lymph % (Auto) Stafford % (Auto) Eos % (Auto) Baso % (Auto) Immature Gran # (Auto) Neut # (Auto) Lymph # (Auto) [place] # (Auto) Eos # (Auto) Baso # (Auto) PT INR APTT PTT Ratio D-Dimer 740 H* Sodium Potassium Chloride Carbon Dioxide Anion Gap BUN Creatinine Est Cr Clr Drug Dosing Est GFR ( Amer) Est GFR (Non-Af Amer) BUN/Creatinine Ratio Glucose Calcium Magnesium Total Bilirubin AST ALT Alkaline Phosphatase Troponin I NT-Pro-B Natriuret Pep 76 Total Protein Albumin Globulin Albumin/Globulin Ratio Triglycerides Cholesterol LDL Cholesterol, Calc VLDL Cholesterol, Calc HDL Cholesterol Cholesterol/HDL Ratio Hepatitis C Ab Screen Neg 10/01/18 10/01/18 10/01/18 00:15 05:58 05:58 WBC 9.89 RBC 4.69 Hgb 13.7 Hct 42.2 MCV 90.0 MCH 29.2 MCHC 32.5 RDW Std Deviation 46.8 H RDW Coeff of Jovan 14.3 Plt Count 269 MPV 10.9 H Immature Gran % (Auto) 0.2 Neut % (Auto) 46.6 Lymph % (Auto) 41.2 Stafford % (Auto) 6.3 Eos % (Auto) 5.4 Baso % (Auto) 0.3 Immature Gran # (Auto) 0.02 Neut # (Auto) 4.62 Lymph # (Auto) 4.07 H Stafford # (Auto) 0.62 H Eos # (Auto) 0.53 H Baso # (Auto) 0.03 PT INR APTT PTT Ratio D-Dimer Sodium 140 Potassium 3.9 D Chloride 106 Carbon Dioxide 29 Anion Gap 5.0 BUN 7 Creatinine 0.81 Est Cr Clr Drug Dosing 105.1 Est GFR ( Amer) 93.4 Est GFR (Non-Af Amer) 80.6 BUN/Creatinine Ratio 9.1 L Glucose 85 Calcium 8.6 Magnesium 2.5 H Total Bilirubin AST ALT Alkaline Phosphatase Troponin I < 0.015 < 0.015 NT-Pro-B Natriuret Pep Total Protein Albumin Globulin Albumin/Globulin Ratio Triglycerides 137 Cholesterol 160 LDL Cholesterol, Calc 95 VLDL Cholesterol, Calc 27 HDL Cholesterol 38 Cholesterol/HDL Ratio 4 Hepatitis C Ab Screen 10/01/18 12:10 WBC RBC Hgb Hct MCV MCH MCHC RDW Std Deviation RDW Coeff of Jovan Plt Count MPV Immature Gran % (Auto) Neut % (Auto) Lymph % (Auto) Stafford % (Auto) Eos % (Auto) Baso % (Auto) Immature Gran # (Auto) Neut # (Auto) Lymph # (Auto) Stafford # (Auto) Eos # (Auto) Baso # (Auto) PT INR APTT PTT Ratio D-Dimer Sodium Potassium Chloride Carbon Dioxide Anion Gap BUN Creatinine Est Cr Clr Drug Dosing Est GFR ( Amer) Est GFR (Non-Af Amer) BUN/Creatinine Ratio Glucose Calcium Magnesium Total Bilirubin AST ALT Alkaline Phosphatase Troponin I < 0.015 NT-Pro-B Natriuret Pep Total Protein Albumin Globulin Albumin/Globulin Ratio Triglycerides Cholesterol LDL Cholesterol, Calc VLDL Cholesterol, Calc HDL Cholesterol Cholesterol/HDL Ratio Hepatitis C Ab Screen (1) Hypertension Hypertension type: essential hypertension Qualified Code(s): I10 - Essential (primary) hypertension (2) Hypertension Hypertension type: unspecified Qualified Code(s): I10 - Essential (primary) hypertension (3) Obesity Body mass index: BMI 50.0-59.9 Obesity classification: adult class 3 (BMI >= 40) Obesity type: unspecified obesity type Serious obesity comorbidity presence: unspecified whether serious comorbidity present Qualified Code(s): E66.01 - Morbid (severe) obesity due to excess calories; Z68.43 - Body mass index (BMI) 50-59.9, adult
[2018-10-01] MEDS ORDERED: ATORVASTATIN 10 MG TAB PO SCH (14:45)
--- NOTE | 2018-10-01 15:56 | Hospitalist Progress Note ---
Date of Service October 01, 2018 Assessment & Plan (1) Atypical chest pain: Recent chest pain atypical for angina Symptoms resolved after sublingual nitro Did not had any further episode of chest heaviness or chest discomfort EKG shows no evidence of acute ischemic change Serial cardiac markers negative Resting echocardiogram shows no new wall motion abnormality Appreciate input from cardiac Status post dobutamine stress echo today, daily for stress-induced ischemia Patient has cardiac risk factors: Obesity,'s smoking , hypertension, family history of premature coronary artery disease (mother had DE at age 40) Patient is asked to start taking aspirin 81 dailyprescription sent to patient's pharmacy Low-dose statin Lipitor 10 mg daily Fasting lipid panel shows LDL 95given high risk factor goal LDL less than 70 Repeat fasting lipid panel in 6 to 12-week Patient is counseled for heart healthy diet, exercise, weight management (2) Hypertension: Continue outpatient meds (3) Obesity: BMI 57.3 Patient is counseled for weight reduction, healthy diet and exercise (4) Tobacco use: Smoking cessation counseling provided CODE STATUS: Full code DVT prophylaxis subcu heparin Disposition: Medically stable to be discharged home today Subjective No further complaint of chest pain or shortness of breath Dobutamine stress test negative for stress-induced ischemia Patient is eager to be discharged home Physical Exam Constitutional: WD/WN, vitals as above + obese Eyes: PERRL, conjunctivae normal, anicteric sclerae ENMT: external ear and nose normal, oropharynx normal Neck: trachea midline, no thyromegaly Respiratory: normal respiratory effort, lungs clear to auscultation Cardiovascular: RRR, no murmur, no edema Gastrointestinal (Abdomen): normal bowel sounds, soft, nontender, no hepatosplenomegaly Musculoskeletal: no cyanosis or clubbing, extremities motor strength 5/5 Skin: no rashes, warm and dry Neurologic: PERRL, EOMI, accommodation nl, no face palsy, no dysarthria Psychiatric: A+Ox3, euthymic affect Results & Data Vital Signs (Past 12 Hours) Vital Signs Temp Pulse Pulse Resp BP BP Pulse Ox 10/01/18 15:25 36.5 C 67 18 134/78 94 10/01/18 15:05 36.5 C 87 22 176/60 H 93 10/01/18 10:59 36.5 C 87 22 176/60 H 93 10/01/18 07:34 36.5 C 69 16 124/63 94 10/01/18 07:29 69 (1) Hypertension Hypertension type: unspecified Qualified Code(s): I10 - Essential (primary) hypertension (2) Obesity Body mass index: BMI 50.0-59.9 Obesity classification: adult class 3 (BMI >= 40) Obesity type: unspecified obesity type Serious obesity comorbidity presence: unspecified whether serious comorbidity present Qualified Code(s): E66.01 - Morbid (severe) obesity due to excess calories; Z68.43 - Body mass index (BMI) 50-59.9, adult
--- NOTE | 2018-10-01 15:57 | Discharge Summary ---
Date of Service October 01, 2018 Admission HPI Per Admitting Provider DICTATED BY: Roberto Kirkland MD DATE OF ADMISSION: 09/30/2018 CHIEF COMPLAINT: Chest pain. HISTORY OF PRESENT ILLNESS: This is a 58-year-old female with past medical history significant for hyperlipidemia, hypertension, obesity, depression, ongoing tobacco abuse, presents with chest pain. The patient yesterday evening around 8:00 p.m., she was watching TV when she noticed chest pain in the middle of the chest radiating to her shoulder, arm and left side of the face, moderate to severe in nature and she was brought into the ER. Initial workup is negative. The patient received aspirin, famotidine and nitroglycerin paste with the pain is currently 3/10 in severity. During the episode, she felt nauseous, dizzy and short of breath. Currently, still has some discomfort but hemodynamically stable. She smokes cigarettes daily about half of a pack. Denies any headache, no blurred vision, no earache, no runny nose, no sore throat, no difficulty swallowing. Appetite is okay. Sleep is okay. She has knee problem, cannot climb steps but otherwise she ambulates okay. Normal bowel and bladder movements. No abdominal pain. No swelling of the legs. No rash. Never had this chest pain before.As per she snores in the night. Principal Diagnosis Chest pain atypical for angina/no evidence of acute coronary event-dobutamine stress test negative for stress-induced ischemia Discharge Exam Constitutional WD/WN, vitals as above + obese Eyes PERRL, conjunctivae normal, anicteric sclerae ENMT external ear and nose normal, oropharynx normal Neck trachea midline, no thyromegaly Respiratory normal respiratory effort, lungs clear to auscultation Cardiovascular RRR, no murmur, no edema Gastrointestinal (Abdomen) normal bowel sounds, soft, nontender, no hepatosplenomegaly Musculoskeletal no cyanosis or clubbing, extremities motor strength 5/5 Skin no rashes, warm and dry Neurologic PERRL, EOMI, accommodation nl, no face palsy, no dysarthria Psychiatric A+Ox3, euthymic affect Discharge Data Allergies Allergy/AdvReac Type Severity Reaction Status Date / Time Sulfa (Sulfonamide Allergy Mild N/V Verified 09/30/18 22:27 Antibiotics) capsaicin Allergy Unknown NAUSEA Verified 09/30/18 22:27 diclofenac Allergy Unknown NAUSEA Verified 09/30/18 22:27 Diclopak Allergy Unknown NAUSEA Verified 10/18/16 10:27 Penicillins Allergy Unknown HIVES Verified 09/30/18 22:27 sulindac Allergy Unknown NAUSEA Verified 09/30/18 22:27 oxycodone AdvReac Mild ANXIOUS Verified 09/30/18 22:27 Consultations 10/01/18 08:00 Consult Cardiology Routine Ordered Studies 10/01/18 00:13 CT angio chest PE protocol Urgent Hospital Course (1) Atypical chest pain: Recent chest pain atypical for angina Symptoms resolved after sublingual nitro Did not had any further episode of chest heaviness or chest discomfort EKG shows no evidence of acute ischemic change Serial cardiac markers negative Resting echocardiogram shows no new wall motion abnormality Appreciate input from cardiac Status post dobutamine stress echo today, daily for stress-induced ischemia Patient has cardiac risk factors: Obesity,'s smoking , hypertension, family history of premature coronary artery disease (mother had SC at age 40) Patient is asked to start taking aspirin 81 dailyprescription sent to patient's pharmacy Low-dose statin Lipitor 10 mg daily Fasting lipid panel shows LDL 95given high risk factor goal LDL less than 70 Repeat fasting lipid panel in 6 to 12-week Patient is counseled for heart healthy diet, exercise, weight management (2) Hypertension: Continue outpatient meds (3) Obesity: BMI 57.3 Patient is counseled for weight reduction, healthy diet and exercise (4) Tobacco use: Smoking cessation counseling provided CODE STATUS: Full code DVT prophylaxis subcu heparin Disposition: Medically stable to be discharged home today Total Time Total Time Spent Total Time Spent (In Minutes): Approximately 35-minute Total Time Includes: Examination of the Patient, Discharge Planning and Medication Reconciliation Discharge Plan Discharge Items Patient Disposition: Home - Self-Care Reason For Visit: CHEST PAIN Discharge Diagnosis: Chest pain/noncardiac, negative dobutamine stress test Discharge Goals: Decrease discomfort and Diagnostic testing Activity: Resume your previous activity Non-emergency contact: Primary Care Provider Call non-emergency contact if: you have any medication questions Follow-up/Referrals: Angel Tijerina MD [Physician] - 10/08/18 1:10 pm Diet: Heart Healthy Addtl Provider Instructions: Hospital follow-up with Dr. Angel Tijerina at [facility] on next 10/08/2018 at 1:10 PM NEW MEDICATIONS: Aspirin low-dose 81 mg daily-take with food to prevent acid reflux/gastric ulcer Atorvastatin 10 mg by mouth daily-for high cholesterol Fasting lipid panel to be checked in 6 to 12 weeks Prescriptions: New atorvastatin 10 mg Tablet 10 mg PO QAM 30 Days Qty: 30 RF: 3 aspirin [Ecotrin Low Strength] 81 mg Tablet,Delayed Release (Dr/Ec) 81 mg PO QAM 30 Days Qty: 30 RF: 3 Continued citalopram [Celexa] 20 mg tablet 20 mg PO DAILY RF: 0 ranitidine HCl 150 mg Tablet 150 mg PO DAILY PRN (Reason: Acid Reflux) RF: 0 lisinopril-hydrochlorothiazide [Zestoretic] 20-25 mg tablet 1 tab PO DAILY RF: 0 Flonase Sensimist 27.5 mcg/actuation [place],Suspension 2 spray INTRANASAL DAILY PRN (Reason: Congestion) RF: 0 Stand-Alone Forms: [facility] Discharge Orders: Discharge Order (Routine); Ordered 10/01/18 Ordered By: Keeley Burr Admission Data Admit Date/Time: 09/30/18 23:13 Attending Provider: Keeley Burr Admit Provider: Roberto Kirkland Primary Care Provider: Kimi Salinas Other Providers: Orion Salinas Service: Telemetry Other Interventions: Discharge Summary Assessment (RN) Last Done: 10/01/18 15:05 DC Date/Time DO NOT enter until pt leaves facility: 10/01/18 15:49
== END 2018-10-01 15:49 | disposition home or self-care (01) ==
LOC: ED 20:37 → INTOOBSV 23:13 → 2S 23:13

== ENCOUNTER 2021-02-16 19:52 | Inpatient (IN) ==
[2021-02-16 20:37] LABS: Basophils # (auto) 0.01 K/uL (0-0.2); Basophils % (auto) 0.1 %; Eosinophils # (auto) 0.06 K/uL (0-0.5); Eosinophils % (auto) 0.8 %; Hemoglobin 15.1 g/dL (12.0-16.0); Immature Granulocytes # (auto) 0.03 K/uL (0.00-0.02); Immature Granulocytes % (auto) 0.4 %; Lymphocytes # (auto) 1.64 K/uL (1.2-3.4); Lymphocytes % (auto) 22.9 %; Mean Corpuscular Hemoglobin 29.4 pg (25-34); Mean Corpuscular Hgb Conc 32.1 g/dL (32-36); Mean Corpuscular Volume 91.4 fL (80-100); Mean Platelet Volume 10.3 fL (7.4-10.4); Monocytes # (auto) 0.61 K/uL (0.11-0.59); Monocytes % (auto) 8.5 %; Neutrophils # (auto) 4.81 K/uL (1.4-6.5); Neutrophils % (auto) 67.3 %; Platelet Count 274 K/uL (130-400); RDW Coefficient of Variation 14.3 % (11.5-14.5); RDW Standard Deviation 48.5 fL (36.4-46.3); Red Blood Count 5.14 M/uL (4.2-5.4); White Blood Count 7.16 K/uL (4.8-10.8)
[2021-02-16 20:47] LABS: INR 1.1 (0.9-1.1); Partial Thromboplastin Ratio 1.1; Partial Thromboplastin Time 29.1 Seconds (21.0-31.0); Prothrombin Time 10.9 Seconds (9.0-12.0)
[2021-02-16 20:55] LABS: Alanine Aminotransferase 22 U/L (12-78); Albumin Level 3.1 gm/dl (3.4-5.0); Aspartate Aminotransferase 18 U/L (15-37); BUN Creatinine Ratio 6.1 (10-20); Blood Urea Nitrogen 7 mg/dl (7-18); Calcium 9.1 mg/dl (8.5-10.1); Carbon Dioxide 26 mmol/L (21-32); Chloride 105 mmol/L (98-107); Creatinine Clr Calc Pharmacy 76.8 ml/min; Est GFR (African American) 66.6 ml/min; Est GFR (Non-African American) 57.4 ml/min; Glucose 105 mg/dl (70-99); Magnesium 2.1 mg/dl (1.8-2.4); Potassium 3.3 mmol/L (3.5-5.1); Sodium 138 mmol/L (136-145)
[2021-02-16 21:00] LABS: Albumin Globulin Ratio 0.6 (0.9-2); Alkaline Phosphatase 134 U/L (45-117); Bilirubin,Total 0.3 mg/dl (0.2-1); Globulin 4.8 gm/dl (2.5-4.0); Total Protein 7.9 gm/dl (6.4-8.2); Troponin I < 0.015 ng/ml (0-0.045)
--- NOTE | 2021-02-16 21:06 | XRay Report ---
XR chest 1V portable HISTORY: Shortness of breath. COMPARISON: Chest 09/30/2018. FINDINGS: No pneumothorax. No pleural effusions. The cardiac silhouette remains mildly enlarged. Ther e are patchy airspace opacities within the left mid to lower lung zone and right lung base. Postopera tive changes again noted within the left shoulder. IMPRESSION: Patchy airspace opacities within the left mid to lower lung zone and right lung base. This likely rep resents a viral pneumonia. ACT 112: Negative or not required by law. Electronically signed by: Elkin Pace M.D. 02/16/2021 9:04 PM
[2021-02-16 22:15] LABS: D Dimer 1200 ug/L FEU (0-500)
[2021-02-16] MEDS ORDERED: OPTIRAY 320 125ml IV ONE (22:51)
[2021-02-16] MEDS ORDERED: levoFLOXacin/D5W 750 MG/150 ML BAG IV STA (23:39)
[2021-02-16] MEDS ORDERED: SODIUM CHLORIDE 0.9% 1000ML 500 ML IV ONE (23:50)
[2021-02-17] MEDS ORDERED: POTASSIUM CHLORIDE CRTAB 20 MEQ TABCR PO STA (00:30)
[2021-02-17] MEDS ORDERED: XOPENEX/ATROVENT 1.25mg/0.5MG NEB COMBO NEB STA (00:31)
[2021-02-17] MEDS ORDERED: lisinopril 40 MG TAB PO STA (00:31)
[2021-02-17] MEDS ORDERED: cloNIDine HCL 0.1 MG TAB PO STA (00:31)
[2021-02-17] MEDS ORDERED: LEVALBUTEROL 1.25MG/0.5ML NEB INH STA (00:32)
[2021-02-17] MEDS ORDERED: IPRATROPIUM BROMIDE NEB SOLN 0.02% 2.5 ML VIAL INH STA (00:32)
[2021-02-17] MEDS ORDERED: methylPREDNISolone 20 MG in SYRINGE 0 ML IV STA (01:23)
--- NOTE | 2021-02-17 01:23 | History & Physical Report ---
Date of Service February 17, 2021 Assessment & Plan (1) Acute hypoxemic respiratory failure: Plan: Secondary to COPD exacerbation secondary to community-acquired pneumonia Severe sepsis SIRS plus hypoxemia secondary to above hypertension, elevated secondary to missed BP medications prediabetes, hemoglobin A1c noted to be 6.16 March 2019 ongoing tobacco abuse Medical telemetry Supplemental O2 Steroid, nebs RTC CS, Levaquin ABG, Pulmonary consult if without improvement Facilitate home BP meds, may need dose titration Nicotine patch as needed May need insulin coverage if hyperglycemia noted following steroid Rx DVT prophylaxis per Lovenox subcu Full code Total critical care time was 40 minutes. Text document was generated using [employer] voice recognition software. It may contain grammatical or spelling errors. Kindly contact undersigned for clarification of any documentation item in question. History of Present Illness Chief Complaint: Cough, shortness of breath Primary Care Provider: Kimi Salinas DO History obtained from patient and records. Medical history significant for COPD as per records, hypertension, hyperlipidemia, prediabetes, mood disorder, ongoing tobacco abuse. Last confinement 2018 for atypical chest pain. Few days history of junky cough symptoms, body aches, fever, chills. Pleuritic pain with shortness of breath. No known COVID-19 contacts. Patient has not received COVID-19 vaccination. Patient seen at urgent care center hours ago. BP 190/60, patient noted to be tachycardic and febrile. Patient directed to ER for further evaluation for possible sepsis. O2 sats noted to be 80s shortly after arrival at the ER. Patient given Levaquin for sepsis. Medical History as above Surgical History : ESWL, BTL, partial hysterectomy, shoulder surgery, surgical laparoscopy with lysis of adhesions Family History : Heart disease, stroke, thyroid disease Personal/Social history : Reports pack daily, no EtOH intake, currently unemployed Allergies Allergy/AdvReac Type Severity Reaction Status Date / Time Sulfa (Sulfonamide Allergy Mild N/V Verified 02/17/21 00:05 Antibiotics) capsaicin Allergy Unknown NAUSEA Verified 02/17/21 00:05 diclofenac Allergy Unknown NAUSEA Verified 02/17/21 00:05 Diclopak Allergy Unknown NAUSEA Verified 10/18/16 10:27 Penicillins Allergy Unknown HIVES Verified 02/17/21 00:05 sulindac Allergy Unknown NAUSEA Verified 02/17/21 00:05 oxycodone AdvReac Mild ANXIOUS Verified 02/17/21 00:05 Home Medications Medication Instructions Recorded Confirmed Type fluticasone furoate 27.5 2 spray INTRANASAL DAILY PRN 09/30/18 02/17/21 History mcg/actuation nasal spray,suspension (Flonase Sensimist) lisinopril 20 1 tab PO DAILY 09/30/18 02/17/21 History mg-hydrochlorothiazide 25 mg tablet (Zestoretic) [place] Plus D-N (acetam) 1 - 2 tab PO UD PRN 02/16/21 02/17/21 History Past Med/Surg History Medical History (Updated 02/17/21 @ 09:24 by Meek Tucker MD) Hypertension Surgical History (Updated 10/01/18 @ 14:24 by Orion Salinas DO) H/O: hysterectomy Family History Father Myocardial infarction Sister Myocardial infarction Social History Smoking Status: Former smoker Second Hand Exposure: No; Do You Dip or Chew Tobacco: No; Hx Alcohol Use: No Hx Substance Use: No Preferred Language: Ethiopian Communication Ability: Effective Stroke Belt 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 Required: No Beliefs That Will Affect Care: None Current Living Situation: Spouse Other Information That Helps Us Care for You: No Feels Safe at Home: Yes Safety Concerns: Feels Safe At This Time Assistive Devices: Denture - Upper, Denture - Lower and Glasses Review of Systems Review of Systems: As per HPI, all 10 systems reviewed, all other ROS negative Physical Exam Physical Exam: GENERAL: Slightly uncomfortable, anxious, episodic tachypnea, morbidly obese, pleasant SKIN: Normal color, warm HEENT: Bespectacled, [place] palpebral conjunctivae, no ptosis, dry buccal mucosa, nasal cannula in place NECK : Supple, short neck, no tenderness CHEST : Decreased breath sounds, occasional expiratory wheezes, no tenderness HEART : Tachycardic, no obvious murmurs ABDOMEN: Some distention, nontender EXTREMITIES : Minimal LE swelling, no LE tenderness, no other conspicuous deformities noted NEUROLOGIC : Coherent, no facial asymmetry, no other gross focality Results & Data Results & Data ([facility]) Vital Signs (Past 12 Hours) Vital Signs Temp Pulse Pulse Resp BP BP Pulse Ox 02/17/21 00:45 83 18 94 02/17/21 00:16 109 H 20 169/69 H 95 02/16/21 23:35 108 H 20 94 02/16/21 22:30 110 H 28 H 196/99 H 92 02/16/21 22:20 116 H 26 H 95 02/16/21 22:17 101 H 24 92 02/16/21 22:04 110 H 26 H 187/98 H 95 02/16/21 21:50 27 H 94 02/16/21 19:55 37.4 C 119 H 24 216/88 H 92 Laboratory Results Laboratory Results WBC 7.16 K/uL (4.8-10.8) 02/16/21 20:28 RBC 5.14 M/uL (4.2-5.4) 02/16/21 20:28 Hgb 15.1 g/dL (12.0-16.0) 02/16/21 20:28 Hct 47.0 % (37-47) 02/16/21 20:28 MCV 91.4 fL (80-100) 02/16/21 20:28 MCH 29.4 pg (25-34) 02/16/21 20:28 MCHC 32.1 g/dL (32-36) 02/16/21 20:28 RDW Std Deviation 48.5 fL (36.4-46.3) H 02/16/21 20:28 RDW Coeff of Jovan 14.3 % (11.5-14.5) 02/16/21 20:28 Plt Count 274 K/uL (130-400) 02/16/21 20:28 MPV 10.3 fL (7.4-10.4) 02/16/21 20:28 Immature Gran % (Auto) 0.4 % 02/16/21 20:28 Neut % (Auto) 67.3 % 02/16/21 20:28 Lymph % (Auto) 22.9 % 02/16/21 20:28 [place] % (Auto) 8.5 % 02/16/21 20:28 Eos % (Auto) 0.8 % 02/16/21 20:28 Baso % (Auto) 0.1 % 02/16/21 20:28 Neut # (Auto) 4.81 K/uL (1.4-6.5) 02/16/21 20:28 Lymph # (Auto) 1.64 K/uL (1.2-3.4) 02/16/21 20:28 [place] # (Auto) 0.61 K/uL (0.11-0.59) H 02/16/21 20:28 Eos # (Auto) 0.06 K/uL (0-0.5) 02/16/21 20: Baso # (Auto) 0.01 K/uL (0-0.2) 02/16/21 20: Immature Gran # (Auto) 0.03 K/uL (0.00-0.02) H 02/16/21 20: PT 10.9 Seconds (9.0-12.0) 02/16/21 20: INR 1.1 (0.9-1.1) 02/16/21 20: APTT 29.1 Seconds (21.0-31.0) 02/16/21 20: PTT Ratio 1.1 02/16/21 20:28 D-Dimer 1200 ug/L FEU (0-500) H* 02/16/21 20:28 Sodium 138 mmol/L (136-145) 02/16/21 20: Potassium 3.3 mmol/L (3.5-5.1) L 02/16/21 20: Chloride 105 mmol/L (98-107) 02/16/21 20: Carbon Dioxide 26 mmol/L (21-32) 02/16/21 20: Anion Gap 8.0 (3-11) 02/16/21 20: BUN 7 mg/dl (7-18) 02/16/21 20: Creatinine 1.06 mg/dl (0.6-1.2) 02/16/21 20: Est Cr Clr Drug Dosing 76.8 ml/min 02/16/21 20: Est GFR ( Amer) 66.6 ml/min 02/16/21 20: Est GFR (Non-Af Amer) 57.4 ml/min 02/16/21 20: BUN/Creatinine Ratio 6.1 (10-20) L 02/16/21 20: Glucose 105 mg/dl (70-99) H 02/16/21 20:28 Calcium 9.1 mg/dl (8.5-10.1) 02/16/21 20:28 Magnesium 2.1 mg/dl (1.8-2.4) 02/16/21 20:28 Total Bilirubin 0.3 mg/dl (0.2-1) 02/16/21 20:28 AST 18 U/L (15-37) 02/16/21 20:28 ALT 22 U/L (12-78) 02/16/21 20:28 Alkaline Phosphatase 134 U/L (45-117) H 02/16/21 20:28 Troponin I < 0.015 ng/ml (0-0.045) 02/16/21 20:28 Total Protein 7.9 gm/dl (6.4-8.2) 02/16/21 20:28 Albumin 3.1 gm/dl (3.4-5.0) L 02/16/21 20:28 Globulin 4.8 gm/dl (2.5-4.0) H 02/16/21 20:28 Albumin/Globulin Ratio 0.6 (0.9-2) L 02/16/21 20:28 COVID-19 Eval Order Covid19 at [facility] 02/16/21 21:59 SARS-CoV-2 (PCR) NEGATIVE (Negative) 02/16/21 21:59 Influenza Type A Ag Neg for Influ A (Neg) 02/16/21 21:59 Influenza Type B Ag Neg for Influ B (Neg) 02/16/21 21:59 Impressions Chest X-Ray 02/16/21 20:16 XR chest 1V portable HISTORY: Shortness of breath. COMPARISON: Chest 09/30/2018. FINDINGS: No pneumothorax. No pleural effusions. The cardiac silhouette remains mildly enlarged. There are patchy airspace opacities within the left mid to lower lung zone and right lung base. Postoperative changes again noted within the left shoulder. IMPRESSION: Patchy airspace opacities within the left mid to lower lung zone and right lung base. This likely represents a viral pneumonia. ACT 112: Negative or not required by law. Electronically signed by: Elkin Pace M.D. 02/16/2021 9:[address] chest initial read: No pulmonaryembolus. No aortic aneurysmor dissection. Patchybilateral airspace opacities are most prominent on the left and are most consistent with atypical infection. The heart size iswithin normal limits. No pathologicallyenlarged lymph nodes. No fracture. EKG as per my interpretation:Rate 110, sinus tachycardia, normal axis, no ischemia
[2021-02-17] MEDS ORDERED: POTASSIUM CHLORIDE 40 MEQ in SODIUM CHLORIDE 0.9% 1000ML 1,000 ML IV ONE (01:29)
[2021-02-17] MEDS ORDERED: ACETAMINOPHEN 325 MG TAB PO PRN (03:39)
[2021-02-17] MEDS ORDERED: traMADol HCL 50 MG TABLET PO PRN (03:39)
[2021-02-17] MEDS ORDERED: XOPENEX/ATROVENT 1.25mg/0.5MG NEB COMBO NEB PRN (03:39)
[2021-02-17] MEDS ORDERED: IPRATROPIUM BROMIDE NEB SOLN 0.02% 2.5 ML VIAL INH PRN (03:39)
[2021-02-17] MEDS ORDERED: PROMETHAZINE HCL 12.5 MG in SODIUM CHLORIDE 0.9% 50 ML IV PRN (03:39)
[2021-02-17] MEDS ORDERED: LEVALBUTEROL 1.25MG/0.5ML NEB INH PRN (03:39)
[2021-02-17 06:28] LABS: Basophils # (auto) 0.01 K/uL (0-0.2); Basophils % (auto) 0.1 %; Immature Granulocytes # (auto) 0.02 K/uL (0.00-0.02); Immature Granulocytes % (auto) 0.3 %; Lymphocytes # (auto) 1.03 K/uL (1.2-3.4); Lymphocytes % (auto) 14.6 %; Mean Corpuscular Hemoglobin 29.4 pg (25-34); Mean Corpuscular Hgb Conc 31.9 g/dL (32-36); Monocytes # (auto) 0.14 K/uL (0.11-0.59); Neutrophils # (auto) 5.84 K/uL (1.4-6.5); Platelet Count 293 K/uL (130-400); RDW Coefficient of Variation 14.4 % (11.5-14.5); RDW Standard Deviation 48.9 fL (36.4-46.3); Red Blood Count 5.11 M/uL (4.2-5.4); White Blood Count 7.04 K/uL (4.8-10.8)
[2021-02-17 06:54] LABS: BUN Creatinine Ratio 7.3 (10-20); Calcium 9.1 mg/dl (8.5-10.1); Creatinine Clr Calc Pharmacy 91.9 ml/min; Est GFR (African American) 83.4 ml/min; Est GFR (Non-African American) 71.9 ml/min
--- NOTE | 2021-02-17 07:14 | CT Scan Report ---
CT angio chest PE protocol CLINICAL HISTORY: sob, tachycardic, elevated dimer TECHNIQUE: Multidetector row helical CT of the chest was performed. Coronal and sagittal reformations were obtained. Automated dose lowering techniques and/or adjustment according to patient size were u tilized for this exam. Comparison: Comparison is made to CTA chest 10/01/2018 and chest 1 view 02/16/2021 FINDINGS: Lungs and pleura: Diffuse atelectatic and scarring changes are seen. Mild mosaic attenuation without definite consolidation. 4 mm nodule in the left apex is noted, unchanged from prior exam.. Heart and pericardium: Heart size is normal. No pericardial effusion. Vessels: No evidence of pulmonary embolism. Mediastinum and becky: Unremarkable. Chest wall and lower neck: Subcentimeter thyroid nodules are noted which do not require follow-up by ACR criteria. Abdomen: Hepatic steatosis is noted. Bones: Degenerative changes in the thoracic spine. IMPRESSION: No evidence of pulmonary embolism. ACT 112: Negative or not required by law. Electronically signed by: Juan Rosario M.D. 02/17/2021 7:12 AM
[2021-02-17] MEDS: ENOXAPARIN INJ 40 MG/0.4 ML SYR SQ SCH (07:21)
[2021-02-17] MEDS ORDERED: FLUARIX QUADRIVALENT 0.5 ML SYR IM ONE (08:00)
[2021-02-17] MEDS ORDERED: CONSULT PHARMACY SCH (09:00)
--- NOTE | 2021-02-17 10:48 | Electrocardiogram Report ---
Test Reason : Blood Pressure : / mmHG Vent. Rate : 112 BPM Atrial Rate : 112 BPM P-R Int : 160 ms QRS Dur : 094 ms QT Int : 320 ms P-R-T Axes : 061 023 080 degrees QTc Int : 436 ms Sinus tachycardia Otherwise normal ECG When compared with ECG of 01-OCT-2018 07:09, TX interval has increased Vent. rate has increased BY 41 BPM Confirmed by Nick Atwood ([id number]) on 02/17/2021 10:47:57 AM Referred By: REFERRED SELF Confirmed By:Nasir Atwood
[2021-02-17] MEDS: IPRATROPIUM BROMIDE NEB SOLN 0.02% 2.5 ML VIAL INH SCH ×3 (12:07→19:52)
[2021-02-17] MEDS: LEVALBUTEROL 1.25MG/0.5ML NEB INH SCH ×3 (12:07→19:52)
[2021-02-17] MEDS ORDERED: XOPENEX/ATROVENT 1.25mg/0.5MG NEB COMBO NEB SCH (13:00)
[2021-02-17] MEDS ORDERED: levoFLOXacin 750 MG TAB PO SCH (21:00)
[2021-02-18] MEDS: LEVALBUTEROL 1.25MG/0.5ML NEB INH SCH ×3 (00:22→12:57)
[2021-02-18] MEDS: IPRATROPIUM BROMIDE NEB SOLN 0.02% 2.5 ML VIAL INH SCH ×3 (00:23→12:57)
[2021-02-18 07:33] LABS: Basophils # (auto) 0.01 K/uL (0-0.2); Basophils % (auto) 0.1 %; Eosinophils # (auto) 0.07 K/uL (0-0.5); Eosinophils % (auto) 0.9 %; Hematocrit (blood only) 40.7 % (37-47); Hemoglobin 13.1 g/dL (12.0-16.0); Immature Granulocytes # (auto) 0.01 K/uL (0.00-0.02); Immature Granulocytes % (auto) 0.1 %; Lymphocytes # (auto) 3.49 K/uL (1.2-3.4); Lymphocytes % (auto) 46.5 %; Mean Corpuscular Hemoglobin 29.2 pg (25-34); Mean Corpuscular Hgb Conc 32.2 g/dL (32-36); Mean Corpuscular Volume 90.8 fL (80-100); Mean Platelet Volume 10.5 fL (7.4-10.4); Monocytes # (auto) 0.79 K/uL (0.11-0.59); Monocytes % (auto) 10.5 %; Neutrophils # (auto) 3.14 K/uL (1.4-6.5); Neutrophils % (auto) 41.9 %; Platelet Count 258 K/uL (130-400); RDW Coefficient of Variation 14.8 % (11.5-14.5); RDW Standard Deviation 49.9 fL (36.4-46.3); Red Blood Count 4.48 M/uL (4.2-5.4); White Blood Count 7.51 K/uL (4.8-10.8)
[2021-02-18] MEDS: ENOXAPARIN INJ 40 MG/0.4 ML SYR SQ SCH (08:11)
[2021-02-18 08:22] LABS: BUN Creatinine Ratio 11.4 (10-20); Creatinine Clr Calc Pharmacy 89.4 ml/min; Est GFR (Non-African American) 69.1 ml/min; Potassium 3.3 mmol/L (3.5-5.1)
[2021-02-18] MEDS ORDERED: POTASSIUM CHLORIDE CRTAB 20 MEQ TABCR PO STA (08:41)
[2021-02-18] MEDS ORDERED: predniSONE 20 MG TAB PO SCH (09:00)
[2021-02-18] MEDS ORDERED: lisinopril 20 MG TAB PO SCH (09:00)
--- NOTE | 2021-03-02 12:44 | Emergency Department Note ---
History of Present Illness General Chief complaint: Shortness of Breath/Dyspnea Stated complaint: SOB Time Seen by Provider: 02/16/21 21:40 Source: patient Mode of arrival: ambulatory Limitations: no limitations History of Present Illness This patient is a 60-year-old female who presents to the emergency department for evaluation of flu-like symptoms x 2 days. Patient states she has had a cough, fevers, bodyaches and shortness of breath. She denies any recent sick contacts. She has not received COVID-19 vaccination. She does report a history of smoking, states she quit "2 days ago when she got sick." She denies a diagnosis of COPD. She does report a history of hypertension, and did not take her BP meds today. Home Medications Medication Instructions Recorded Confirmed Type fluticasone furoate 27.5 2 spray INTRANASAL DAILY PRN 09/30/18 02/17/21 History mcg/actuation nasal spray,suspension (Flonase Sensimist) lisinopril 20 1 tab PO DAILY 09/30/18 02/17/21 History mg-hydrochlorothiazide 25 mg tablet (Zestoretic) Allergies Allergy/AdvReac Type Severity Reaction Status Date / Time Sulfa (Sulfonamide Allergy Mild N/V Verified 02/17/21 00:05 Antibiotics) capsaicin Allergy Unknown NAUSEA Verified 02/17/21 00:05 diclofenac Allergy Unknown NAUSEA Verified 02/17/21 00:05 Diclopak Allergy Unknown NAUSEA Verified 10/18/16 10:27 Penicillins Allergy Unknown HIVES Verified 02/17/21 00:05 sulindac Allergy Unknown NAUSEA Verified 02/17/21 00:05 oxycodone AdvReac Mild ANXIOUS Verified 02/17/21 00:05 Past Med/Surg History Medical History Hypertension Surgical History H/O: hysterectomy Family History Father Myocardial infarction Sister Myocardial infarction Social History Smoking Status: Former smoker Second Hand Exposure: No; Do You Dip or Chew Tobacco: No; Hx Alcohol Use: No Hx Substance Use: No Preferred Language: German Communication Ability: Effective 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 Vital signs stable. GENERAL: This is a 60-year-old obese female, in no significant distress. SKIN: The skin was without rashes. EARS: External auditory canals clear, tympanic membranes pearly pozo without erythema or effusion bilaterally. EYES: Pupils equal round and reactive to light and accommodation. NOSE: Patent, turbinates without inflammation or discharge. MOUTH: Mucous membranes moist. Tonsils are not enlarged. Pharynx without erythema or exudate. NECK: Supple without nuchal rigidity. No lymphadenopathy. LUNGS: Decreased breath sounds bilaterally. EXTREMITIES: No pitting edema of bilateral lower extremities. NEURO: Patient was alert and oriented to person place and time. Course Administered Medications Discontinued Medications Clonidine HCl (Clonidine Hcl 0.1 Mg Tab) 0.1 mg PO NOW STA Stop: 02/17/21 00:32 Last Admin: 02/17/21 00:53 Dose: 0.1 mg Documented by: [id number] Enoxaparin Sodium (Enoxaparin Inj 40 Mg/0.4 Ml Syr) 40 mg SQ QAM DANE Stop: 03/19/21 08:59 Last Admin: 02/18/21 08:11 Dose: 40 mg Documented by: [id number] Admin: 02/17/21 07:21 Dose: 40 mg Documented by: [id number] Levofloxacin/Dextrose (Levaquin/D5w) 750 mg in 150 mls @ 100 mls/hr IV NOW STA Stop: 02/17/21 01:08 Last Infusion: 02/17/21 01:36 Dose: 0 mls/hr Documented by: [id number] Admin: 02/16/21 23:51 Dose: 100 mls/hr Documented by: [id number] Sodium Chloride (Nss 1000ml) 500 mls @ 999 mls/hr IV .[id number] ONE Stop: 02/17/21 00:20 Last Infusion: 02/17/21 00:24 Dose: 0 mls/hr Documented by: [id number] Admin: 02/16/21 23:51 Dose: 999 mls/hr Documented by: [id number] Potassium Chloride 40 meq/ (Sodium Chloride) 1,020 mls @ 50 mls/hr IV .[id number] ONE Stop: 02/17/21 21:52 Last Infusion: 02/17/21 22:30 Dose: 0 mls/hr Documented by: [id number] Admin: 02/17/21 06:16 Dose: 50 mls/hr Documented by: [id number] Ioversol (Optiray 320 125ml) 120 ml IV ONCE ONE Stop: 02/16/21 22:52 Last Admin: 02/16/21 22:51 Dose: 120 ml Documented by: [id number] Ipratropium [place] (Ipratropium [place] Neb Soln 0.02% 2.5 Ml Vial) 0.5 mg INH NOW STA Stop: 02/17/21 00:33 Last Admin: 02/17/21 00:43 Dose: 0.5 mg Documented by: [id number] Ipratropium [place] (Ipratropium [place] Neb Soln 0.02% 2.5 Ml Vial) 0.5 mg INH Q6R DANE Stop: 03/19/21 09:59 Last Admin: 02/18/21 12:57 Dose: 0.5 mg Documented by: [id number] Admin: 02/18/21 07:17 Dose: 0.5 mg Documented by: [id number] Admin: 02/18/21 00:23 Dose: 0.5 mg Documented by: [id number] Admin: 02/17/21 19:52 Dose: 0.5 mg Documented by: [id number] Admin: 02/17/21 12:07 Dose: 0.5 mg Documented by: [id number] Admin: 02/17/21 12:07 Dose: Not Given Documented by: [id number] Levalbuterol HCl (Levalbuterol 1.25mg/0.5ml Neb) 1.25 mg INH NOW STA Stop: 02/17/21 00:33 Last Admin: 02/17/21 00:43 Dose: 1.25 mg Documented by: [id number] Levalbuterol HCl (Levalbuterol 1.25mg/0.5ml Neb) 1.25 mg INH Q6R DANE Stop: 03/19/21 09:59 Last Admin: 02/18/21 12:57 Dose: 1.25 mg Documented by: [id number] Admin: 02/18/21 07:17 Dose: 1.25 mg Documented by: [id number] Admin: 02/18/21 00:22 Dose: 1.25 mg Documented by: [id number] Admin: 02/17/21 19:52 Dose: 1.25 mg Documented by: [id number] Admin: 02/17/21 12:07 Dose: 1.25 mg Documented by: [id number] Admin: 02/17/21 12:07 Dose: Not Given Documented by: [id number] Levofloxacin (Levofloxacin 750 Mg Tab) 750 mg PO [facility]; Protocol Stop: 02/24/21 20:59 Last Admin: 02/17/21 21:03 Dose: 750 mg Documented by: [id number] Lisinopril (Lisinopril 40 Mg Tab) 40 mg PO NOW STA Stop: 02/17/21 00:32 Last Admin: 02/17/21 00:53 Dose: 40 mg Documented by: [id number] Lisinopril (Lisinopril 20 Mg Tab) 20 mg PO [facility] Stop: 03/20/21 08:59 Last Admin: 02/18/21 08:11 Dose: 20 mg Documented by: [id number] Methylprednisolone (Methylprednisolone 40 Mg/Ml Vial) 20 mg IV NOW STA Stop: 02/17/21 01:27 Last Admin: 02/17/21 01:45 Dose: 20 mg Documented by: [id number] Potassium Chloride (Potassium Chloride Crtab 20 Meq Tabcr) 40 meq PO NOW STA Stop: 02/17/21 00:31 Last Admin: 02/17/21 00:53 Dose: 40 meq Documented by: [id number] Potassium Chloride (Potassium Chloride Crtab 20 Meq Tabcr) 40 meq PO NOW STA Stop: 02/18/21 08:42 Last Admin: 02/18/21 09:43 Dose: 40 meq Documented by: [id number] Prednisone (Prednisone 20 Mg Tab) 40 mg PO DAILY [facility] Stop: 02/22/21 08:59 Last Admin: 02/18/21 08:11 Dose: 40 mg Documented by: [id number] Medical Decision Making Differential Diagnosis Reactive airway disease, pneumonia, pneumothorax, COPD, CHF, infections, cardiac ischemia, pulmonary embolism, musculoskeletal, gastrointestinal, as well as other pathologies. Home Medications Current Medication List: was personally reviewed by me Laboratory Data Attestation: I reviewed the patient's lab results. Result diagrams: 02/18/21 06:53 02/18/21 06:53 Lab Results 02/16/21 02/16/21 02/16/21 Range/Units 20:28 20:28 20:28 WBC 7.16 (4.8-10.8) K/uL RBC 5.14 (4.2-5.4) M/uL Hgb 15.1 (12.0-16.0) g/dL Hct 47.0 (37-47) % MCV 91.4 (80-100) fL MCH 29.4 (25-34) pg MCHC 32.1 (32-36) g/dL RDW Std Deviation 48.5 H (36.4-46.3) fL RDW Coeff of Jovan 14.3 (11.5-14.5) % Plt Count 274 (130-400) K/uL MPV 10.3 (7.4-10.4) fL Immature Gran % (Auto) 0.4 % Neut % (Auto) 67.3 % Lymph % (Auto) 22.9 % [place] % (Auto) 8.5 % Eos % (Auto) 0.8 % Baso % (Auto) 0.1 % Neut # (Auto) 4.81 (1.4-6.5) K/uL Lymph # (Auto) 1.64 (1.2-3.4) K/uL [place] # (Auto) 0.61 H (0.11-0.59) K/uL Eos # (Auto) 0.06 (0-0.5) K/uL Baso # (Auto) 0.01 (0-0.2) K/uL Immature Gran # (Auto) 0.03 H (0.00-0.02) K/uL PT 10.9 (9.0-12.0) Seconds INR 1.1 (0.9-1.1) APTT 29.1 (21.0-31.0) Seconds PTT Ratio 1.1 D-Dimer (0-500) ug/L FEU Sodium 138 (136-145) mmol/L Potassium 3.3 L (3.5-5.1) mmol/L Chloride 105 (98-107) mmol/L Carbon Dioxide 26 (21-32) mmol/L Anion Gap 8.0 (3-11) BUN 7 (7-18) mg/dl Creatinine 1.06 (0.6-1.2) mg/dl Est Cr Clr Drug Dosing 76.8 ml/min Est GFR ( Amer) 66.6 ml/min Est GFR (Non-Af Amer) 57.4 ml/min BUN/Creatinine Ratio 6.1 L (10-20) Glucose 105 H (70-99) mg/dl Calcium 9.1 (8.5-10.1) mg/dl Magnesium 2.1 (1.8-2.4) mg/dl Total Bilirubin 0.3 (0.2-1) mg/dl AST 18 (15-37) U/L ALT 22 (12-78) U/L Alkaline Phosphatase 134 H (45-117) U/L Troponin I < 0.015 (0-0.045) ng/ml Total Protein 7.9 (6.4-8.2) gm/dl Albumin 3.1 L (3.4-5.0) gm/dl Globulin 4.8 H (2.5-4.0) gm/dl Albumin/Globulin Ratio 0.6 L (0.9-2) COVID-19 Eval Order SARS-CoV-2 (PCR) (Negative) Influenza Type A Ag (Neg) Influenza Type B Ag (Neg) 02/16/21 02/16/21 02/16/21 Range/Units 20:28 21:59 21:59 WBC (4.8-10.8) K/uL RBC (4.2-5.4) M/uL Hgb (12.0-16.0) g/dL Hct (37-47) % MCV (80-100) fL MCH (25-34) pg MCHC (32-36) g/dL RDW Std Deviation (36.4-46.3) fL RDW Coeff of Jovan (11.5-14.5) % Plt Count (130-400) K/uL MPV (7.4-10.4) fL Immature Gran % (Auto) % Neut % (Auto) % Lymph % (Auto) % [place] % (Auto) % Eos % (Auto) % Baso % (Auto) % Neut # (Auto) (1.4-6.5) K/uL Lymph # (Auto) (1.2-3.4) K/uL [place] # (Auto) (0.11-0.59) K/uL Eos # (Auto) (0-0.5) K/uL Baso # (Auto) (0-0.2) K/uL Immature Gran # (Auto) (0.00-0.02) K/uL PT (9.0-12.0) Seconds INR (0.9-1.1) APTT (21.0-31.0) Seconds PTT Ratio D-Dimer 1200 H* (0-500) ug/L FEU Sodium (136-145) mmol/L Potassium (3.5-5.1) mmol/L Chloride (98-107) mmol/L Carbon Dioxide (21-32) mmol/L Anion Gap (3-11) BUN (7-18) mg/dl Creatinine (0.6-1.2) mg/dl Est Cr Clr Drug Dosing ml/min Est GFR ( Amer) ml/min Est GFR (Non-Af Amer) ml/min BUN/Creatinine Ratio (10-20) Glucose (70-99) mg/dl Calcium (8.5-10.1) mg/dl Magnesium (1.8-2.4) mg/dl Total Bilirubin (0.2-1) mg/dl AST (15-37) U/L ALT (12-78) U/L Alkaline Phosphatase (45-117) U/L Troponin I (0-0.045) ng/ml Total Protein (6.4-8.2) gm/dl Albumin (3.4-5.0) gm/dl Globulin (2.5-4.0) gm/dl Albumin/Globulin Ratio (0.9-2) COVID-19 Eval Order Covid19 at [facility] SARS-CoV-2 (PCR) NEGATIVE (Negative) Influenza Type A Ag (Neg) Influenza Type B Ag (Neg) 02/16/21 Range/Units 21:59 WBC (4.8-10.8) K/uL RBC (4.2-5.4) M/uL Hgb (12.0-16.0) g/dL Hct (37-47) % MCV (80-100) fL MCH (25-34) pg MCHC (32-36) g/dL RDW Std Deviation (36.4-46.3) fL RDW Coeff of Jovan (11.5-14.5) % Plt Count (130-400) K/uL MPV (7.4-10.4) fL Immature Gran % (Auto) % Neut % (Auto) % Lymph % (Auto) % [place] % (Auto) % Eos % (Auto) % Baso % (Auto) % Neut # (Auto) (1.4-6.5) K/uL Lymph # (Auto) (1.2-3.4) K/uL [place] # (Auto) (0.11-0.59) K/uL Eos # (Auto) (0-0.5) K/uL Baso # (Auto) (0-0.2) K/uL Immature Gran # (Auto) (0.00-0.02) K/uL PT (9.0-12.0) Seconds INR (0.9-1.1) APTT (21.0-31.0) Seconds PTT Ratio D-Dimer (0-500) ug/L FEU Sodium (136-145) mmol/L Potassium (3.5-5.1) mmol/L Chloride (98-107) mmol/L Carbon Dioxide (21-32) mmol/L Anion Gap (3-11) BUN (7-18) mg/dl Creatinine (0.6-1.2) mg/dl Est Cr Clr Drug Dosing ml/min Est GFR ( Amer) ml/min Est GFR (Non-Af Amer) ml/min BUN/Creatinine Ratio (10-20) Glucose (70-99) mg/dl Calcium (8.5-10.1) mg/dl Magnesium (1.8-2.4) mg/dl Total Bilirubin (0.2-1) mg/dl AST (15-37) U/L ALT (12-78) U/L Alkaline Phosphatase (45-117) U/L Troponin I (0-0.045) ng/ml Total Protein (6.4-8.2) gm/dl Albumin (3.4-5.0) gm/dl Globulin (2.5-4.0) gm/dl Albumin/Globulin Ratio (0.9-2) COVID-19 Eval Order SARS-CoV-2 (PCR) (Negative) Influenza Type A Ag Neg for Influ A (Neg) Influenza Type B Ag Neg for Influ B (Neg) Imaging Data Attestation: I personally reviewed and interpreted this imaging study as follows: Radiologist's Impression: XR chest 1V portable HISTORY: Shortness of breath. COMPARISON: Chest 09/30/2018. FINDINGS: No pneumothorax. No pleural effusions. The cardiac silhouette remains mildly enlarged. There are patchy airspace opacities within the left mid to lower lung zone and right lung base. Postoperative changes again noted within the left shoulder. IMPRESSION: Patchy airspace opacities within the left mid to lower lung zone and right lung base. This likely represents a viral pneumonia. CTA CHEST: No pulmonary embolus. No aortic aneurysm or dissection. Patchy bilateral airspace opacities are most prominent on the left and are most consistent with atypical infection. The heart size is within normal limits. No pathologically enlarged lymph nodes. No fracture. Radiologist:Lisette Covington MD ECG Data Attestation: I personally reviewed and interpreted this ECG as follows: Indication: + SOB/dyspnea Rate (beats per minute): 112 Rhythm: + sinus tachycardia ECG Intervals/blocks: + Normal QRS ECG ST segments: + Normal ST segments Change: the following changes noted (heart rate has increased) MDM Narrative Continuous environmental monitoring technician: Order was placed for continuous environmental monitoring technician. Patient was placed on the environmental monitoring technician. Patient was noted to be in sinus tachycardia at an initial rate of 116 bpm. The patient is a 60-year-old female who presents today complaining of flu like symptoms over the past few days. Chest x-ray and CTA suggestive of atypical pneumonia. COVID-19 and influenza testing were negative. Patient was tachycardic and hypoxic in the 80s. She was placed on O2 via nasal cannula with improvement. She was treated empirically with Levaquin due to PCN allergy. [facility] hospitalist was consulted and agreed to evaluate the patient for further care. Impression & Plan Bilateral pneumonia, Hypoxia Discharge Plan Visit Data Chief Complaint: Shortness of Breath/Dyspnea Stated Complaint: SOB ED Provider: Orion Lizarraga ED Midlevel Provider: Rica Medina Discharge Problem: Bilateral pneumonia, Hypoxia Patient Disposition: Admitted As Inpatient Discharge Instructions Interventions: ED Discharge Assessment Last Done: 02/17/21 02:54
--- NOTE | 2021-03-04 13:31 | Discharge Summary ---
Date of Service March 04, 2021 Admission HPI Per Admitting Provider History obtained from patient and records. Medical history significant for COPD as per records, hypertension, hyperlipidemia, prediabetes, mood disorder, ongoing tobacco abuse. Last confinement 2018 for atypical chest pain. Few days history of junky cough symptoms, body aches, fever, chills. Pleuritic pain with shortness of breath. No known COVID-19 contacts. Patient has not received COVID-19 vaccination. Patient seen at urgent care center hours ago. BP 190/60, patient noted to be tachycardic and febrile. Patient directed to ER for further evaluation for possible sepsis. O2 sats noted to be 80s shortly after arrival at the ER. Patient given Levaquin for sepsis. Medical History as above Surgical History : ESWL, BTL, partial hysterectomy, shoulder surgery, surgical laparoscopy with lysis of adhesions Family History : Heart disease, stroke, thyroid disease Personal/Social history : Reports pack daily, no EtOH intake, currently unemployed Principal Diagnosis Acute hypoxemic respiratory failure: Discharge Exam General: A&Ox3 HENT: NCAT, MMM, EOMI Eyes: PERRLA Neck: Supple, normal range of motion CVS: normal rate and rhythm Resp: b/l good breath sounds Abdomen: Soft, ND/NT, +BS Extremities: No c/c/e Neuro: face symmetric, no gross focal deficits appreciated Skin: warm and dry, no rashes/lesions/errythema MSK: normal ROM, no joint swelling/erythema Discharge Data Allergies Allergy/AdvReac Type Severity Reaction Status Date / Time Sulfa (Sulfonamide Allergy Mild N/V Verified 02/17/21 00:05 Antibiotics) capsaicin Allergy Unknown NAUSEA Verified 02/17/21 00:05 diclofenac Allergy Unknown NAUSEA Verified 02/17/21 00:05 Diclopak Allergy Unknown NAUSEA Verified 10/18/16 10:27 Penicillins Allergy Unknown HIVES Verified 02/17/21 00:05 sulindac Allergy Unknown NAUSEA Verified 02/17/21 00:05 oxycodone AdvReac Mild ANXIOUS Verified 02/17/21 00:05 Consultations 02/17/21 00:15 ED Decision to Admit Stat Ordered Studies 02/16/21 22:16 CT angio chest PE protocol Urgent Hospital Course (1) Acute hypoxemic respiratory failure: Secondary to COPD exacerbation secondary to community-acquired pneumonia Severe sepsis SIRS plus hypoxemia secondary to above hypertension, elevated secondary to missed BP medications prediabetes, hemoglobin A1c noted to be 6.16 March 2019 ongoing tobacco abuse Patient was treated with Levaquin and prednisone. Day of discharge patient was doing okay. She was on room air. Patient was discharged with a course of Levaquin prednisone therapy. Patient was discharged in stable condition. Total Time Total Time Spent Total Time Spent (In Minutes): 35 Discharge Plan Discharge Items Patient Disposition: Home - Self-Care Reason For Visit: RESP FAILURE Discharge Diagnosis: Pneumonia Activity: Resume your previous activity Non-emergency contact: Primary Care Provider Call non-emergency contact if: your symptoms worsen Follow-up/Referrals: Kimi Salinas DO [Primary Care Provider] - (Date & Time 02/25/2021 11:10 AM Provider Kimi Salinas DO Department [facility] ) Diet: Heart Healthy Addtl Attending Provider Instructions: Take Levaquin and prednisone for 4 more days. Follow-up with your primary care physician as an outpatient. Pending Studies at Discharge: No Stand-Alone Forms: My [facility] Takes, Smoking Cessation Medications and DC Order Prescriptions: Continued lisinopril-hydrochlorothiazide [Zestoretic] 20-25 mg tablet 1 tab PO DAILY RF: 0 Flonase Sensimist 27.5 mcg/actuation [place],Suspension 2 spray INTRANASAL DAILY PRN (Reason: Congestion) RF: 0 Discontinued Padmini-[place] Plus D-N (acetam) 1 - 2 tab PO UD PRN (Reason: Flu Symptoms) RF: 0 Discharge Orders: Discharge Order (Routine); Ordered 02/18/21 Ordered By: Lynda Goetz Admission Data Admit Date/Time: 02/17/21 01:26 Attending Provider: Lynda Goetz Admit Provider: Meek Tucker Primary Care Provider: Kimi Salinas Other Interventions: Discharge Summary Assessment (RN) Last Done: 02/18/21 17:11
== END 2021-02-18 18:37 | disposition home or self-care (01) | DRG 871 ==
LOC: ED 19:52 → 2N 02-17 01:26
DX: F39 Unspecified mood [affective] disorder; J18.9 Pneumonia, unspecified organism; J44.1 Chronic obstructive pulmonary disease with (acute) exacerbation; Z82.49 Family history of ischemic heart disease and other diseases of the circulatory system; E78.5 Hyperlipidemia, unspecified; J96.01 Acute respiratory failure with hypoxia; A41.9 Sepsis, unspecified organism; R65.20 Severe sepsis without septic shock; Z87.891 Personal history of nicotine dependence; I10 Essential (primary) hypertension; R73.03 Prediabetes